=== PATIENT | female | born 1975 | race Caucasian/White ===

== ENCOUNTER 2017-05-31 07:51 | Emergency (ER) | payer OTHER ==
[2017-05-31 09:03] LABS: ABSOLUTE LYMPHOCYTES (AUTO) 1.4 10^3/uL (0.5-4.7); ABSOLUTE MONOCYTES (AUTO) 0.4 10^3/uL (0.1-1.4); ABSOLUTE NEUT (AUTO) 4.1 10^3/uL (1.7-8.2); BASOPHILS % (AUTO) 0.5 % (0-2); EOSINOPHILS % (AUTO) 0.8 % (0-6); HEMATOCRIT 34.1 % (36.0-47.0); HEMOGLOBIN 11.1 g/dL (12.0-15.5); HGB HCT DIFFERENCE -0.8; LYMPHOCYTES % (AUTO) 23.5 % (13-45); MEAN CORPUSCULAR HEMOGLOBIN 31.9 pg (27.0-33.4); MEAN CORPUSCULAR HGB CONC 32.5 g/dL (32.0-36.0); MEAN CORPUSCULAR VOLUME 98 fl (80-97); MONOCYTES % (AUTO) 5.9 % (3-13); RED BLOOD COUNT 3.47 10^6/uL (3.72-5.28); RED CELL DISTRIBUTION WIDTH 16.1 % (11.5-14.0); SEGMENTED NEUTROPHILS % (AUTO) 69.3 % (42-78)
[2017-05-31 09:16] LABS: PROTHROMBIN TIME 12.8 SEC (11.4-15.4)
[2017-05-31 09:17] LABS: PARTIAL THROMBOPLASTIN TIME 26.6 SEC (23.5-35.8)
[2017-05-31 09:20] LABS: ANION GAP 8 (5-19); BLOOD UREA NITROGEN 11 mg/dL (7-20); CALCIUM 8.9 mg/dL (8.4-10.2); CARBON DIOXIDE 23 mmol/L (22-30); CHLORIDE 108 mmol/L (98-107); CREATININE RESULT 0.67 mg/dL (0.52-1.25); GLUCOSE 102 mg/dL (75-110); POTASSIUM 4.3 mmol/L (3.6-5.0); SODIUM 138.9 mmol/L (137-145)
--- NOTE | 2017-05-31 09:46 | RADIOLOGY REPORT (SQ) ---
EXAM DESCRIPTION: HAND RIGHT 3 VIEWS COMPLETED DATE/TIME: 05/31/2017 8:49 am REASON FOR STUDY: 5th dig pain COMPARISON: None. EXAM PARAMETERS: NUMBER OF VIEWS: Three views. TECHNIQUE: AP, lateral and oblique radiographic images acquired of the right hand. LIMITATIONS: None. FINDINGS: MINERALIZATION: Normal. BONES: No acute fracture or dislocation. No worrisome bone lesions. Small benign-appearing bony exo stosis off the anterior shaft of the 5th metacarpal. JOINTS: No effusions. SOFT TISSUES: No soft tissue swelling. No foreign body. OTHER: No other significant finding. IMPRESSION: Small benign-appearing bony exostosis off the anterior aspect of the 5th metacarpal othe rwise negative exam. TECHNICAL DOCUMENTATION: JOB ID: [id number] [employer]- All Rights Reserved
--- NOTE | 2017-05-31 12:16 | RADIOLOGY REPORT (SQ) ---
EXAM DESCRIPTION: U/S NON OB PEL TV W/DOPPLER COMPLETED DATE/TIME: 05/31/2017 11:15 am REASON FOR STUDY: lower abd pain bleeding COMPARISON: None. TECHNIQUE: Dynamic and static grayscale images acquired of the pelvis via transvaginal approach and recorded on PACS. Additional selected color Doppler and spectral images recorded. LIMITATIONS: None. FINDINGS: UTERUS: Contour normal. No mass. There is a heterogeneous echo-pattern throughout the ut erus. ENDOMETRIAL STRIPE: There is some loss of definition of the endometrial stripe and adjacent myometriu m. The possibility of adenomyosis should be considered. CERVIX: No nabothian cysts. RIGHT OVARY: No abnormal masses. RIGHT OVARY DOPPLER: Normal arterial vascular flow without evidence for torsion. LEFT OVARY: No abnormal masses. LEFT OVARY DOPPLER: Normal arterial vascular flow without evidence for torsion. FREE FLUID: None noted. OTHER: No other significant finding. MEASUREMENTS: UTERUS: 9.3 x 5.3 x 5.4 cm ENDOMETRIAL STRIPE: 11.2 mm RIGHT OVARY: 3.4 x 2.5 x 2.5 cm LEFT OVARY: 2.6 x 2.0 x 1.7 cm IMPRESSION: There is heterogeneous echogenicity throughout the uterus with some loss of definition o f the endometrial stripe and adjacent myometrium. The possibility of adenomyosis should be considere d. No discrete masses are identified. Other findings as noted above TECHNICAL DOCUMENTATION: JOB ID: [id number] [employer]- All Rights Reserved
--- NOTE | 2017-05-31 12:38 | ER Document Report ---
ED General - General Chief Complaint: Vaginal Bleeding Stated Complaint: VAGINAL BLEEDING Time Seen by Provider: 05/31/17 08:22 TRAVEL OUTSIDE OF THE U.S. IN LAST 30 DAYS: No - HPI Patient complains to provider of: Vaginal bleeding Notes: Patient coming in for evaluation of vaginal bleeding. Patient states that her normal menstrual cycle however now has been bleeding heavily since night prior to last. Patient states also lower abdominal cramping. Denies any vaginal discharge patient denies any fever chills nausea vomiting. - Related Data Allergies/Adverse Reactions: acetaminophen [From Vicodin] Allergy (Verified 05/31/17 07:57) hydrocodone [From Vicodin] Allergy (Verified 05/31/17 07:57) Past Medical History - Social History Smoking Status: Current Some Day Smoker Chew tobacco use (# tins/day): No Frequency of alcohol use: Heavy Drug Abuse: None Family History: Reviewed & Not Pertinent, Arthritis, DM, Malignancy Patient has suicidal ideation: No Patient has homicidal ideation: No - Past Medical History Cardiac Medical History: Reports: Hx Hypercholesterolemia, Hx Hypertension Pulmonary Medical History: Reports: Hx Pneumonia Neurological Medical History: Reports: Hx Migraine Renal/ Medical History: Reports: Hx Ectopic , Hx Kidney Stones. Denies: Hx Peritoneal Dialysis Musculoskeltal Medical History: Reports Hx Arthritis, Reports Hx Musculoskeletal Deformity, Reports Hx Musculoskeletal Trauma Psychiatric Medical History: Reports: Hx Anxiety, Hx Attention Deficit Hyperactivity Disorder, Hx Bipolar Disorder, Hx Depression Past Surgical History: Reports: Hx Appendectomy, Hx Genitourinary Surgery - right ureteral stent - Immunizations Immunizations up to date: No Hx Diphtheria, Pertussis, Tetanus Vaccination: No - unk Review of Systems - Review of Systems Constitutional: No symptoms reported EENT: No symptoms reported Cardiovascular: No symptoms reported Respiratory: No symptoms reported Gastrointestinal: No symptoms reported Genitourinary: No symptoms reported Female Genitourinary: Vaginal bleeding Musculoskeletal: No symptoms reported Skin: No symptoms reported Hematologic/Lymphatic: No symptoms reported Neurological/Psychological: No symptoms reported -: Yes All other systems reviewed and negative Physical Exam - Vital signs Vitals: Temp Pulse Resp BP Pulse Ox 97.9 F 87 16 158/102 H 98 05/31/17 07:57 05/31/17 07:57 05/31/17 07:57 05/31/17 07:57 05/31/17 07:57 Interpretation: Normal - General General appearance: Appears well, Alert - HEENT Head: Normocephalic, Atraumatic Eyes: Normal Pupils: PERRL - Respiratory Respiratory status: No respiratory distress Chest status: Nontender Breath sounds: Normal Chest palpation: Normal - Cardiovascular Rhythm: Regular Heart sounds: Normal auscultation Murmur: No - Abdominal Inspection: Normal Distension: No distension Bowel sounds: Normal Tenderness: Nontender Organomegaly: No organomegaly - Back Back: Normal, Nontender - Extremities General upper extremity: Normal inspection, Nontender, Normal color, Normal ROM , Normal temperature General lower extremity: Normal inspection, Nontender, Normal color, Normal ROM , Normal temperature, Normal weight bearing. No: Eze's sign - Neurological Neuro grossly intact: Yes Cognition: Normal Orientation: AAOx4 [place] Coma Scale Eye Opening: Spontaneous [place] Coma Scale Verbal: Oriented Beata Coma Scale Motor: Obeys Commands Beata Coma Scale Total: 15 Speech: Normal Motor strength normal: LUE, RUE, LLE, RLE Sensory: Normal - Psychological Associated symptoms: Normal affect, Normal mood - Skin Skin Temperature: Warm Skin Moisture: Dry Skin Color: Normal Course - Re-evaluation Re-evalutation: 05/31/17 15:12 Patient ultrasound shows possible adenomyosis this pathology was explained to the patient patient also explained she will need to follow-up with [facility]. Copy to the patient results were given to the patient. Patient has no weakness ongoing mild anemia. Patient was encouraged take iron tablets. Patient will be discharged home. - Vital Signs Vital signs: Temp Pulse Resp BP Pulse Ox 97.9 F 80 18 145/96 H 99 05/31/17 13:24 05/31/17 13:24 05/31/17 13:24 05/31/17 13:24 05/31/17 13:24 - Laboratory Result Diagrams: 05/31/17 08:50 05/31/17 08:50 Laboratory results interpreted by me: 05/31/17 05/31/17 08:50 08:50 RBC 3.47 L Hgb 11.1 L Hct 34.1 L MCV 98 H RDW 16.1 H Chloride 108 H Discharge - Discharge Clinical Impression: Vaginal bleeding Condition: Good Disposition: HOME, SELF-CARE Instructions: Vaginal Bleeding ([facility]) Additional Instructions: Ultrasound today shows a condition called adenomyosis which can cause very heavy bleeding during menstrual cycles. Your lab work does not show any signs of significant anemia requiring blood transfusion at this time. However recommend she call and discuss this new finding with your [facility] I would recommend taking [id number] vitamin or iron tablets take pain medication Tylenol Motrin as needed take prescribed medication for severe pain. Prescriptions: Iron,Carbonyl/Ascorbic Acid [Iron 100-Vitamin C Tablet] 1 each PO DAILY #30 tablet Tramadol HCl [Ultram 50 mg Tablet] 50 mg PO ASDIR PRN #14 tablet PRN Reason: Forms: Return to Work
[2017-05-31 13:43] VITALS: BP 145/96
== END 2017-05-31 13:30 | disposition home or self-care (01) ==
LOC: ER 07:51
DX: N93.8 Other specified abnormal uterine and vaginal bleeding (principal); F17.200 Nicotine dependence, unspecified, uncomplicated; E78.00 Pure hypercholesterolemia, unspecified; I10 Essential (primary) hypertension; Z88.6 Allergy status to analgesic agent; Z87.442 Personal history of urinary calculi
CPT/HCPCS: 36415; 76830; 80048; 84702; 85025; 85610; 85730; 93976; 99284

== ENCOUNTER 2017-09-15 12:37 | Emergency (ER) | payer OTHER ==
--- NOTE | 2017-09-15 13:07 | ER Document Report ---
HPI - HPI Patient complains to provider of: right forearm bruise, injury Onset: Yesterday - Last night Quality of pain: Throbbing Pain Level: 5 Context: 42-year-old female daily etoh consumption fell last night outside in the dark when intoxicated injuring right dorsal forearm, not sure what she injured it on. Hurt all night. Associated Symptoms: None Exacerbated by: Denies Relieved by: Denies Similar symptoms previously: No Recently seen / treated by doctor: No - ROS ROS below otherwise negative: Yes Systems Reviewed and Negative: Yes All other systems reviewed and negative - REPRODUCTIVE Reproductive: DENIES: : - DERM Skin Color: Flushed Past Medical History - General Information source: Patient - Social History Smoking Status: Current Every Day Smoker Frequency of alcohol use: None Drug Abuse: None Lives with: Spouse/Significant other Family History: Reviewed & Not Pertinent, Arthritis, DM, Malignancy Patient has suicidal ideation: No Patient has homicidal ideation: No - Past Medical History Cardiac Medical History: Reports: Hx Hypercholesterolemia, Hx Hypertension Pulmonary Medical History: Reports: Hx Pneumonia Neurological Medical History: Reports: Hx Migraine Renal/ Medical History: Reports: Hx Ectopic , Hx Kidney Stones. Denies: Hx Peritoneal Dialysis Musculoskeltal Medical History: Reports Hx Arthritis, Reports Hx Musculoskeletal Deformity, Reports Hx Musculoskeletal Trauma Psychiatric Medical History: Reports: Hx Anxiety, Hx Attention Deficit Hyperactivity Disorder, Hx Bipolar Disorder, Hx Depression Past Surgical History: Reports: Hx Appendectomy, Hx Genitourinary Surgery - right ureteral stent - Immunizations Immunizations up to date: No Hx Diphtheria, Pertussis, Tetanus Vaccination: No - unk Vertical Provider Document - CONSTITUTIONAL Agree With Documented VS: Yes Exam Limitations: No Limitations General Appearance: Mild Distress - crying in pain - INFECTION CONTROL TRAVEL OUTSIDE OF THE [place].S. IN LAST 30 DAYS: No - HEENT HEENT: Normocephalic - NECK Neck: Supple - RESPIRATORY Respiratory: Breath Sounds Normal, No Respiratory Distress O2 Sat by Pulse Oximetry: 100 - CARDIOVASCULAR Cardiovascular: Regular Rate, Regular Rhythm - GI/ABDOMEN Gastrointestinal: Abdomen Soft, Abdomen Non-Tender - MUSCULOSKELETAL/EXTREMETIES Musculoskeletal/Extremeties: Tender - selling and ecchymosis right mid to distal dorsal forarm Non tender snuffbox and hand - NEURO Level of Consciousness: Awake, Alert, Appropriate Motor/Sensory: No Motor Deficit, No Sensory Deficit - DERM Integumentary: Warm, Dry Course - Re-evaluation Re-evalutation: 09/15/17 14:07 X-ray is negative, I spoke with the patient about using an Buster wrap and sling, she needs a note since she works at [employer], she does not want help with daily alcohol use today but I did give her the resources available to her in this area. 09/15/17 14:18 Mohamud her [id number] and Camacho both guarantee that she will not drink alcohol when she is taking pain pills I will give her a few oxycodone for home. - Vital Signs Vital signs: Temp Pulse Resp BP Pulse Ox 97.6 F 89 20 148/107 H 100 09/15/17 12:51 09/15/17 12:51 09/15/17 12:51 09/15/17 12:51 09/15/17 12:51 Procedures - Immobilization Right Arm Time completed: 14:08 Pre-Proc Neuro Vasc Exam: Normal Immobilizer type: Buster wrap, Sling Performed by: PCT Post-Proc Neuro Vasc Exam: Normal Alignment checked and good: Yes Discharge - Discharge Clinical Impression: Alcoholism /alcohol abuse Fall Qualifiers: Encounter type: initial encounter Qualified Code(s): W19.XXXA - Unspecified fall, initial encounter Contusion of right forearm Qualifiers: Encounter type: initial encounter Qualified Code(s): S50.11XA - Contusion of right forearm, initial encounter Condition: Good Disposition: HOME, SELF-CARE Instructions: Buster Wrap ([facility]), Chronic Alcoholism ([facility]), Contusion ([facility]), Family Physicians / Practices, Temporary Sling ([facility]) Additional Instructions: buster wrap for comfort sling for comfort seek alcohol help, resources given to you cool compress or heat whichever feels better to er if worse see orthopedics if persists expect bruising to get darker Please complete the patient satisfaction survey if you get one, and return it.. If you do not receive a survey, then you can go to the [facility] website, [email or web address] and place your comments about your very good care. Thank you very much. It was a pleasure being your medical provider today. Prescriptions: Oxycodone HCl [Oxy-Ir 5 mg Tablet] 5 mg PO Q4HP PRN #10 tab PRN Reason: Ibuprofen [Motrin 800 mg Tablet] 800 mg PO Q8HP PRN #30 tablet PRN Reason: Forms: Return to Work Referrals: REYNALDO DURHAM MD [ACTIVE STAFF] - Follow up as needed
[2017-09-15] MEDS ORDERED: OXYCODONE-ACETAMINOPHEN 5-325 MG TABLET PO ONE (13:09)
[2017-09-15] MEDS ORDERED: IBUPROFEN 800 MG TABLET PO ONE (13:10)
[2017-09-15] MEDS ORDERED: ONDANSETRON 4 MG TAB.RAPDIS PO ONE (13:10)
--- NOTE | 2017-09-15 13:51 | RADIOLOGY REPORT (SQ) ---
EXAM DESCRIPTION: FOREARM RIGHT COMPLETED DATE/TIME: 09/15/2017 1:30 pm REASON FOR STUDY: fall injury COMPARISON: None. NUMBER OF VIEWS: Two views. TECHNIQUE: Two radiographic images acquired of the right forearm, including elbow and wrist in at le ast one projection. LIMITATIONS: None. FINDINGS: MINERALIZATION: Normal. BONES: No acute fracture. No worrisome bone lesions. SOFT TISSUES: No obvious swelling or foreign body. OTHER: No other significant finding. IMPRESSION: NEGATIVE STUDY OF THE RIGHT FOREARM. NO RADIOGRAPHIC EVIDENCE OF ACUTE INJURY. TECHNICAL DOCUMENTATION: JOB ID: [id number] [employer]- All Rights Reserved
[2017-09-15 14:54] VITALS: BP 152/97
== END 2017-09-15 14:55 | disposition home or self-care (01) ==
LOC: ER 12:37
DX: S50.11XA Contusion of right forearm, initial encounter (principal); F10.10 Alcohol abuse, uncomplicated; W18.30XA Fall on same level, unspecified, initial encounter; F17.210 Nicotine dependence, cigarettes, uncomplicated; E78.00 Pure hypercholesterolemia, unspecified; I10 Essential (primary) hypertension; Z87.442 Personal history of urinary calculi
CPT/HCPCS: 99283; 73090; S0119

== ENCOUNTER 2018-01-10 16:22 | Emergency (ER) | payer OTHER ==
[2018-01-10] MEDS ORDERED: NORMAL SALINE 1000 ML 1,000 ML IV ONE (16:43)
[2018-01-10] MEDS ORDERED: MORPHINE SULFATE 10 MG/ML INJ IV ONE (16:43)
[2018-01-10] MEDS ORDERED: ONDANSETRON HCL INJ/PF 4 MG/2 ML SDV IV ONE (16:43)
--- NOTE | 2018-01-10 16:45 | ER Document Report ---
ED Medical Screen (RME) - General Chief Complaint: Flu Symptoms Stated Complaint: FLU SYMPTOMS Time Seen by Provider: 01/10/18 16:42 Notes: pt has fever, chills, vomiting, hx of pyelo TRAVEL OUTSIDE OF THE [place]. IN LAST 30 DAYS: No - Related Data Allergies/Adverse Reactions: acetaminophen [From Vicodin] Allergy (Verified 01/10/18 16:23) hydrocodone [From Vicodin] Allergy (Verified 01/10/18 16:23) Past Medical History - Social History Frequency of alcohol use: Heavy Drug Abuse: None - Past Medical History Cardiac Medical History: Reports: Hx Hypercholesterolemia, Hx Hypertension Pulmonary Medical History: Reports: Hx Pneumonia Neurological Medical History: Reports: Hx Migraine Renal/ Medical History: Reports: Hx Ectopic , Hx Kidney Stones. Denies: Hx Peritoneal Dialysis Musculoskeltal Medical History: Reports Hx Arthritis, Reports Hx Musculoskeletal Deformity, Reports Hx Musculoskeletal Trauma Psychiatric Medical History: Reports: Hx Anxiety, Hx Attention Deficit Hyperactivity Disorder, Hx Bipolar Disorder, Hx Depression Past Surgical History: Reports: Hx Appendectomy, Hx Genitourinary Surgery - right ureteral stent - Immunizations Immunizations up to date: No Hx Diphtheria, Pertussis, Tetanus Vaccination: No - unk Physical Exam - Vital signs Vitals: Temp Pulse Resp BP Pulse Ox 98.1 F 101 H 18 142/95 H 100 01/10/18 16:28 01/10/18 16:28 01/10/18 16:28 01/10/18 16:28 01/10/18 16:28 Course - Vital Signs Vital signs: Temp Pulse Resp BP Pulse Ox 98.4 F 101 H 18 142/95 H 100 01/10/18 16:43 01/10/18 16:28 01/10/18 16:28 01/10/18 16:28 01/10/18 16:28
[2018-01-10] MEDS ORDERED: HYDROMORPHONE HCL INJ/PF 2 MG/ML AMPULE IV ONE ×2 (16:51→18:10)
[2018-01-10 17:09] LABS: ABSOLUTE LYMPHOCYTES (AUTO) 0.7 10^3/uL (0.5-4.7); ABSOLUTE MONOCYTES (AUTO) 0.4 10^3/uL (0.1-1.4); BASOPHILS % (AUTO) 0.3 % (0-2); EOSINOPHILS % (AUTO) 0.1 % (0-6); HEMATOCRIT 36.2 % (36.0-47.0); HEMOGLOBIN 12.1 g/dL (12.0-15.5); LYMPHOCYTES % (AUTO) 7.8 % (13-45); MEAN CORPUSCULAR HEMOGLOBIN 32.3 pg (27.0-33.4); MEAN CORPUSCULAR HGB CONC 33.5 g/dL (32.0-36.0); MEAN CORPUSCULAR VOLUME 96 fl (80-97); MONOCYTES % (AUTO) 4.6 % (3-13); PLATELET COUNT 195 10^3/uL (150-450); RED BLOOD COUNT 3.76 10^6/uL (3.72-5.28); SEGMENTED NEUTROPHILS % (AUTO) 87.2 % (42-78); TOTAL CELLS COUNTED % (AUTO) 100 %; WHITE BLOOD COUNT 9.1 10^3/uL (4.0-10.5)
[2018-01-10 17:35] LABS: ALANINE AMINOTRANSFERASE 23 U/L (9-52); ALBUMIN 4.3 g/dL (3.5-5.0); ALKALINE PHOSPHATASE 44 U/L (38-126); ANION GAP 10 (5-19); ASPARTATE AMINO TRANSFERASE 23 U/L (14-36); BILIRUBIN,DIRECT 0.4 mg/dL (0.0-0.4); BILIRUBIN,TOTAL 0.8 mg/dL (0.2-1.3); BLOOD UREA NITROGEN 8 mg/dL (7-20); CALCIUM 10.2 mg/dL (8.4-10.2); CARBON DIOXIDE 24 mmol/L (22-30); CHLORIDE 103 mmol/L (98-107); GLUCOSE 103 mg/dL (75-110); SODIUM 136.8 mmol/L (137-145); TOTAL PROTEIN 6.9 g/dL (6.3-8.2)
[2018-01-10 17:48] LABS: AMORPHOUS SEDIMENT,URINE TRACE /HPF; APPEARANCE,URINE SLIGHTLY-CLOUDY; BILIRUBIN,URINE NEGATIVE (NEGATIVE); COLOR,URINE YELLOW; GLUCOSE, URINE NEGATIVE (NEGATIVE); KETONES,URINE NEGATIVE (NEGATIVE); LEUKOCYTE ESTERASE,URINE LARGE (NEGATIVE); NITRITE,URINE NEGATIVE (NEGATIVE); PROTEIN,URINE NEGATIVE (NEGATIVE); UROBILINOGEN,URINE NEGATIVE mg/dL (<2.0)
[2018-01-10] MEDS ORDERED: METOCLOPRAMIDE HCL INJ/PF 10 MG/2 ML SDV IV ONE (18:10)
[2018-01-10] MEDS ORDERED: DIPHENHYDRAMINE HCL 50 MG/ML VIAL IV ONE (18:10)
[2018-01-10] MEDS ORDERED: CEFTRIAXONE 2 GM/D5W RTU 2 GM/50 ML RTUPB IV ONE (18:11)
[2018-01-10] MEDS ORDERED: RINGERS SOLUTION,LACTATED 1,000 ML IV ONE (18:11)
--- NOTE | 2018-01-10 18:13 | ER Document Report ---
ED General - General Chief Complaint: Flu Symptoms Stated Complaint: FLU SYMPTOMS Time Seen by Provider: 01/10/18 16:42 Mode of Arrival: Ambulatory Information source: Patient Notes: This is a 42-year-old female with a history of kidney stones, pyelonephritis, hypertension, dyslipidemia. The patient presents to the emergency room with shaking chills, right flank pain, right lower quadrant pain. The patient does state she felt like she had a UTI for the past 2 weeks and then acutely became sick last night at 9 PM. She does report nausea, vomiting. TRAVEL OUTSIDE OF THE [place]. IN LAST 30 DAYS: No - HPI Onset: Yesterday Onset/Duration: Gradual Quality of pain: Dull Severity: Moderate Pain Level: 2 Associated symptoms: Chills, Fever, Nausea, Vomiting Exacerbated by: Denies Relieved by: Denies Similar symptoms previously: Yes Recently seen / treated by doctor: Yes - Related Data Allergies/Adverse Reactions: acetaminophen [From Vicodin] Allergy (Verified 01/10/18 16:23) hydrocodone [From Vicodin] Allergy (Verified 01/10/18 16:23) Past Medical History - General Information source: Patient - Social History Smoking Status: Current Every Day Smoker Cigarette use (# per day): Yes - Half pack per day Chew tobacco use (# tins/day): No Frequency of alcohol use: Heavy Drug Abuse: None Lives with: Family Family History: Reviewed & Not Pertinent, Arthritis, DM, Malignancy Patient has suicidal ideation: No Patient has homicidal ideation: No - Past Medical History Cardiac Medical History: Reports: Hx Hypercholesterolemia, Hx Hypertension Pulmonary Medical History: Reports: Hx Pneumonia Neurological Medical History: Reports: Hx Migraine Renal/ Medical History: Reports: Hx Ectopic , Hx Kidney Stones. Denies: Hx Peritoneal Dialysis Musculoskeltal Medical History: Reports Hx Arthritis, Reports Hx Musculoskeletal Deformity, Reports Hx Musculoskeletal Trauma Psychiatric Medical History: Reports: Hx Anxiety, Hx Attention Deficit Hyperactivity Disorder, Hx Bipolar Disorder, Hx Depression Past Surgical History: Reports: Hx Appendectomy, Hx Genitourinary Surgery - right ureteral stent - Immunizations Immunizations up to date: No Hx Diphtheria, Pertussis, Tetanus Vaccination: No - unk Review of Systems - Review of Systems Notes: Review of systems: Constitutional: Denies fever, chills. EENT: Denies ear pain, sinus tenderness, throat pain, throat swelling. Cardiovascular: Denies chest pain, palpitations, dyspnea or edema. Respiratory: Denies wheezing, cough, hemoptysis. Abdomen: Denies abdominal pain, nausea, vomiting, diarrhea. Denies BRBPR or melena. Genitourinary: See H&P Musculoskeletal: denies joint pain or swelling, denies back pain. Neurologic: Denies headache, photophobia, neck stiffness, weakness. Denies loss of bowel or bladder function. Denies saddle anesthesia. Skin: Denies rash, lesions. Physical Exam - Vital signs Vitals: Temp Pulse Resp BP Pulse Ox 98.1 F 101 H 18 142/95 H 100 01/10/18 16:28 01/10/18 16:28 01/10/18 16:28 01/10/18 16:28 01/10/18 16:28 Notes: Physical exam: GENERAL: 42-year-old female, alert and oriented 3, no acute distress HEAD: Atraumatic, normocephalic. EYES: Pupils equal round and reactive to light, extraocular movements intact, sclera anicteric, conjunctiva are normal. ENT: TMs normal, nares patent, oropharynx clear without exudates. Moist mucous membranes. NECK: Normal range of motion, supple without obvious mass or JVD. LUNGS: Breath sounds clear to auscultation bilaterally and equal. No wheezes rales or rhonchi. HEART: Regular rate and rhythm without murmurs, rubs or gallops. ABDOMEN: Soft, normoactive bowel sounds. Mild right lower quadrant tenderness without guarding or rebound. No masses appreciated. Right CVA tenderness EXTREMITIES: Normal range of motion, no pitting or edema. No clubbing or cyanosis. NEUROLOGICAL: Cranial nerves II through XII grossly intact. Normal speech, moving all extremities. PSYCH: Normal mood, normal affect. SKIN: Warm, Dry, normal turgor, no rashes or lesions noted. Course - Re-evaluation Re-evalutation: 01/10/18 20:56 Note: The patient did spike a temperature and has some tachycardia which is consistent with her temperature. However, she still looks good. She is requesting p.o. intake right now. She has gotten IV ceftriaxone and oral levofloxacin and I will send her home on Cipro for pyelonephritis. I have advised her to return tomorrow if she is not able to tolerate fluids or feels like she is getting worse. - Vital Signs Vital signs: Temp Pulse Resp BP Pulse Ox 102.4 F H 101 H 18 142/95 H 100 01/10/18 20:45 01/10/18 16:28 01/10/18 16:28 01/10/18 16:28 01/10/18 16:28 - Laboratory Result Diagrams: 01/10/18 16:52 01/10/18 16:52 Laboratory results interpreted by me: 01/10/18 01/10/18 01/10/18 16:52 16:52 16:52 RDW 15.0 H Seg Neutrophils % 87.2 H Lymphocytes % 7.8 L Sodium 136.8 L Urine Blood MODERATE H Ur Leukocyte Esterase LARGE H - Diagnostic Test Radiology reviewed: Image reviewed, Reports reviewed - CT of the abdomen shows no acute intra-abdominal pathology Discharge - Discharge Clinical Impression: Pyelonephritis Condition: Stable Disposition: HOME, SELF-CARE Instructions: Pyelonephritis ([facility]) Additional Instructions: The urine test does show that you have got a kidney infection. The CT of the abdomen look good. Rest of your labs look good today. You did get IV antibiotics and oral antibiotics in the emergency room. I want you to rest, drink fluids and advance her diet slowly as tolerated. Take Cipro (antibiotic): Start tomorrow morning, you given tonight's dose in the ER. Take oxycodone for pain. Take Zofran for nausea. Return to the emergency room for any worsening pain, not tolerating fluids or any concerns or getting worse. The pain medicine you're taking prescribed as a narcotic. There are several important things you should know about this medicine: 1. Taking narcotics for too long can lead to physical and mental dependence. Take this medicine only if really needed and in the lowest quantity to achieve pain relief. 2. Do not drink alcohol while on this medicine. Alcohol interacts with narcotics and the combination can be dangerous. 3. Do not drive or operate machinery while on this medicine. 4. Narcotics do cause constipation, so drink plenty of fluids and daily stool softeners. Prescriptions: Oxycodone HCl 5 mg PO Q6HP PRN #25 tablet PRN Reason: Ciprofloxacin HCl [Cipro 500 mg Tablet] 500 mg PO BID #20 tablet Fluconazole [Diflucan] 150 mg PO ONCE PRN #1 tablet PRN Reason: Ondansetron HCl [Zofran 4 mg Tablet] 1 - 2 tab PO Q4H PRN #10 tablet PRN Reason: Referrals: PETE MONTEZ FNP [Primary Care Provider] - Follow up in 3-5 days
--- NOTE | 2018-01-10 20:40 | RADIOLOGY REPORT (SQ) ---
EXAM DESCRIPTION: CT LTD RENAL STONE PROTOCOL ON COMPLETED DATE/TIME: 01/10/2018 8:24 pm REASON FOR STUDY: right flank pain COMPARISON: 03/22/2014 TECHNIQUE: CT scan of the abdomen and pelvis performed without intravenous or oral contrast. Images reviewed with lung, soft tissue, and bone windows. Reconstructed coronal and sagittal MPR images revi ewed. All images stored on PACS. All CT scanners at this facility use dose modulation, iterative reconstruction, and/or weight based d osing when appropriate to reduce radiation dose to as low as reasonably achievable (ALARA). [facility]: Dose Right [facility]: CareDose [facility]: Dose Right [facility]: Teradose 4D [facility]: Smart GenAudio RADIATION DOSE: CT Rad equipment meets quality standard of care and radiation dose reduction techniq ues were employed. CTDIvol: 8.9 mGy. DLP: 472 mGy-cm.mGy. LIMITATIONS: None. FINDINGS: LOWER CHEST: No significant findings. No nodules or infiltrates. NON-CONTRASTED LIVER, SPLEEN, ADRENALS: Evaluation limited by lack of IV contrast. No identified sign ificant masses. PANCREAS: No masses. No peripancreatic inflammatory changes. GALLBLADDER: No identified stones by CT criteria. No inflammatory changes to suggest cholecystitis. RIGHT KIDNEY AND URETER: No suspicious masses. Assessment limited by lack of IV contrast. Similar mi ldly atrophic appearance. Similar tiny parenchymal calcifications. No hydronephrosis or hydrourete r. LEFT KIDNEY AND URETER: No suspicious masses. Assessment limited by lack of IV contrast. Similar ti ny parenchymal calcifications. No hydronephrosis or hydroureter. AORTA AND RETROPERITONEUM: No aneurysm. No retroperitoneal masses or adenopathy. BOWEL AND PERITONEAL CAVITY: No obvious masses or inflammatory changes. No free fluid. APPENDIX: Surgically absent. PELVIS, BLADDER, AND ABDOMINAL WALL:No abnormal masses. No free fluid. Bladder normal. BONES: No acute findings. OTHER: No other significant finding. IMPRESSION: NO ACUTE PROCESS IN THE ABDOMEN OR PELVIS. COMMENT: Quality ID # [id number]: Final reports with documentation of one or more dose reduction techniques (e.g., Automated exposure control, adjustment of the mA and/or kV according to patient size, use of iterative reconstruction technique) TECHNICAL DOCUMENTATION: JOB ID: [id number] [id number] 2010 [employer]- All Rights Reserved
[2018-01-10] MEDS ORDERED: LEVOFLOXACIN 500 MG TABLET PO ONE (20:53)
[2018-01-10] MEDS ORDERED: ACETAMINOPHEN 325 MG TABLET PO ONE (20:54)
[2018-01-10] MEDS ORDERED: OXYCODONE HCL IR 5 MG TABLET PO ONE (20:56)
[2018-01-10] MEDS ORDERED: ONDANSETRON ODT 4 MG TAB (6 TAB/ER DISP) PO PRN (21:00)
[2018-01-10 21:41] VITALS: BP 131/79
== END 2018-01-10 21:41 | disposition home or self-care (01) ==
LOC: ER 16:22
DX: N12 Tubulo-interstitial nephritis, not specified as acute or chronic (principal); R11.2 Nausea with vomiting, unspecified; R10.31 Right lower quadrant pain; F17.210 Nicotine dependence, cigarettes, uncomplicated; Z87.442 Personal history of urinary calculi; Z88.6 Allergy status to analgesic agent
CPT/HCPCS: 96376; 99284; 96361; 96375; 96365; 36415; 87086; 85025; 81025; 87088; 80053; 81001; 87186; 76380; J1200; J2765; J1170; J2405; J7030; J7120; J0696

== ENCOUNTER 2018-02-21 10:11 | Emergency (ER) | payer OTHER ==
[2018-02-21] MEDS ORDERED: NORMAL SALINE 1000 ML 1,000 ML IV ONE (10:32)
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
[2018-02-21] MEDS ORDERED: MORPHINE SULFATE 10 MG/ML INJ IV ONE ×2 (10:36→15:11)
[2018-02-21] MEDS ORDERED: CEFTRIAXONE INJ 1000 MG VIAL IV ONE (10:43)
[2018-02-21 11:11] LABS: ABSOLUTE MONOCYTES (AUTO) 0.4 10^3/uL (0.1-1.4); ABSOLUTE NEUT (AUTO) 5.1 10^3/uL (1.7-8.2); BASOPHILS % (AUTO) 0.4 % (0-2); EOSINOPHILS % (AUTO) 0.7 % (0-6); HEMATOCRIT 36.8 % (36.0-47.0); HEMOGLOBIN 12.1 g/dL (12.0-15.5); LYMPHOCYTES % (AUTO) 15.4 % (13-45); MEAN CORPUSCULAR HGB CONC 32.8 g/dL (32.0-36.0); MEAN CORPUSCULAR VOLUME 98 fl (80-97); MONOCYTES % (AUTO) 5.4 % (3-13); PLATELET COUNT 202 10^3/uL (150-450); RED BLOOD COUNT 3.76 10^6/uL (3.72-5.28); RED CELL DISTRIBUTION WIDTH 15.6 % (11.5-14.0); SEGMENTED NEUTROPHILS % (AUTO) 78.1 % (42-78); TOTAL CELLS COUNTED % (AUTO) 100 %; WHITE BLOOD COUNT 6.5 10^3/uL (4.0-10.5)
[2018-02-21 11:31] LABS: ALANINE AMINOTRANSFERASE 28 U/L (9-52); ALBUMIN 4.3 g/dL (3.5-5.0); ALKALINE PHOSPHATASE 39 U/L (38-126); ANION GAP 10 (5-19); ASPARTATE AMINO TRANSFERASE 22 U/L (14-36); BILIRUBIN,DIRECT 0.3 mg/dL (0.0-0.4); BILIRUBIN,TOTAL 0.5 mg/dL (0.2-1.3); BLOOD UREA NITROGEN 10 mg/dL (7-20); CALCIUM 9.5 mg/dL (8.4-10.2); CARBON DIOXIDE 24 mmol/L (22-30); CHLORIDE 108 mmol/L (98-107); GLUCOSE 98 mg/dL (75-110); POTASSIUM 4.4 mmol/L (3.6-5.0); SODIUM 141.7 mmol/L (137-145); TOTAL PROTEIN 7.1 g/dL (6.3-8.2)
[2018-02-21 12:01] LABS: APPEARANCE,URINE CLEAR; BILIRUBIN,URINE NEGATIVE (NEGATIVE); COLOR,URINE STRAW; GLUCOSE, URINE NEGATIVE (NEGATIVE); KETONES,URINE NEGATIVE (NEGATIVE); LEUKOCYTE ESTERASE,URINE NEGATIVE (NEGATIVE); NITRITE,URINE NEGATIVE (NEGATIVE); PROTEIN,URINE NEGATIVE (NEGATIVE); URINE SPECIFIC GRAVITY 1.012; UROBILINOGEN,URINE NEGATIVE mg/dL (<2.0)
--- NOTE | 2018-02-21 12:25 | RADIOLOGY REPORT (SQ) ---
EXAM DESCRIPTION: U/S NON OB PEL W/DOPPLER COMPLETED DATE/TIME: 02/21/2018 12:14 pm REASON FOR STUDY: stat r/o ectopic COMPARISON: None. TECHNIQUE: Transabdominal static and realtime grayscale images acquired of the pelvis. Additional se lected spectral and color Doppler images recorded. All images stored on PACs. BHCG: Not available. LIMITATIONS: None. FINDINGS: UTERUS: No visualized intrauterine . RIGHT ADNEXA: Normal ovary with normal vascular flow. No adnexal free fluid. No adnexal masses. LEFT ADNEXA: Normal ovary with normal vascular flow. No adnexal free fluid. No adnexal masses. FREE FLUID: None. OTHER: No other significant finding. IMPRESSION: NO VISUALIZED INTRA- OR EXTRAUTERINE . bHCG LEVEL NOT AVAILABLE FOR CORRELATION WITH US FINDINGS. ECTOPIC CANNOT BE EXCLUDED. FOLLOW-UP ULTRASOUND AND SERIAL BHCG LEVELS STRONGLY RECOMMENDED TO ACCURATELY ASSESS STATU S. TECHNICAL DOCUMENTATION: JOB ID: [id number] [employer]- All Rights Reserved Reading location - IP/workstation name: [email or web address]
[2018-02-21] MEDS ORDERED: KETOROLAC TROMETHAMINE INJ/PF 30 MG/1 ML SDV IV ONE (12:27)
--- NOTE | 2018-02-21 12:28 | RADIOLOGY REPORT (SQ) ---
EXAM DESCRIPTION: U/S RETROPERITON (RENAL/AORTA) COMPLETED DATE/TIME: 02/21/2018 12:14 pm REASON FOR STUDY: right side abd pain hx stones COMPARISON: None. TECHNIQUE: Dynamic and static grayscale images acquired of the kidneys and bladder and recorded on P ACS. Additional selected color Doppler and spectral images recorded. LIMITATIONS: None. FINDINGS: RIGHT KIDNEY: 12.0 cm. Normal echogenicity. No solid or suspicious masses. No hydronephros is. No calcifications. LEFT KIDNEY: 8.9 cm. Increased echogenicity. No solid or suspicious masses. No hydronephrosis. No c alcifications. BLADDER: No masses. OTHER FINDINGS: No other significant finding. IMPRESSION: No hydronephrosis. TECHNICAL DOCUMENTATION: JOB ID: [id number] [employer]- All Rights Reserved Reading location - IP/workstation name: [email or web address]
--- NOTE | 2018-02-21 15:01 | RADIOLOGY REPORT (SQ) ---
EXAM DESCRIPTION: CT ABD/PELVIS WITH IV ONLY COMPLETED DATE/TIME: 02/21/2018 2:26 pm REASON FOR STUDY: RLQ pain COMPARISON: CT abdomen pelvis 01/10/2018 TECHNIQUE: CT scan of the abdomen and pelvis performed using helical scanning technique with dynamic intravenous contrast injection. No oral contrast. Images reviewed with lung, soft tissue, and bone windows. Reconstructed coronal and sagittal MPR images reviewed. Delayed images for evaluation of the urinary system also acquired. All images stored on PACS. All CT scanners at this facility use dose modulation, iterative reconstruction, and/or weight based d osing when appropriate to reduce radiation dose to as low as reasonably achievable (ALARA). [facility]: Dose Right [facility]: CareDose [facility]: Dose Right [facility]: Teradose 4D [facility]: [employer] CONTRAST TYPE AND DOSE: contrast/concentration: Isovue 370.00 mg/ml; Total Contrast Delivered: 83.0 ml; Total Saline Delivered: 68.0 ml RENAL FUNCTION: Creatinine 0.64 RADIATION DOSE: CT Rad equipment meets quality standard of care and radiation dose reduction techniq ues were employed. CTDIvol: 7.8 - 11.0 mGy. DLP: 1014 mGy-cm.. LIMITATIONS: None. FINDINGS: LOWER CHEST: No significant findings. No nodules or infiltrates. LIVER: Normal size. No masses. No dilated ducts. SPLEEN: Normal size. No focal lesions. PANCREAS: No masses. No significant calcifications. No adjacent inflammation or peripancreatic fluid collections. Pancreatic duct not dilated. GALLBLADDER: No identified stones by CT criteria. No inflammatory changes to suggest cholecystitis. ADRENAL GLANDS: No significant masses or asymmetry. RIGHT KIDNEY AND URETER: Diffuse atrophy with multiple areas of high-grade cortical thinning right ki dney. This could be due to vesicoureteral reflux as a child and chronic infection. No significant calcifications. No hydronephrosis or hydroureter. LEFT KIDNEY AND URETER: No solid masses. No significant calcifications. No hydronephrosis or hydr oureter. AORTA AND VESSELS: No aneurysm. No dissection. Renal arteries, SMA, celiac without stenosis. RETROPERITONEUM: No retroperitoneal adenopathy, hemorrhage or masses. BOWEL AND PERITONEAL CAVITY: No masses or inflammatory changes. No free fluid or peritoneal masses. Moderate to large amount of stool in the ascending and transverse colon. APPENDIX: Surgically absent PELVIS: No mass. No free fluid. Normal bladder. ABDOMINAL WALL: No masses. No hernias. BONES: No significant or acute findings. OTHER: No other significant finding. IMPRESSION: Post appendectomy. No CT findings to explain history of right lower quadrant pain. Chronic cortical atrophy right kidney TECHNICAL DOCUMENTATION: JOB ID: [id number] Quality ID # [id number]: Final reports with documentation of one or more dose reduction techniques (e.g., Au tomated exposure control, adjustment of the mA and/or kV according to patient size, use of iterative reconstruction technique) 2010 [email or web address]- All Rights Reserved Reading location - IP/workstation name: [facility]
[2018-02-21] MEDS ORDERED: ACYCLOVIR 200 MG CAPSULE PO ONE (15:09)
[2018-02-21 17:05] VITALS: BP 140/86
== END 2018-02-21 17:10 | disposition home or self-care (01) ==
LOC: ER 10:11
DX: R10.31 Right lower quadrant pain (principal); F17.200 Nicotine dependence, unspecified, uncomplicated; I10 Essential (primary) hypertension; Z87.59 Personal history of other complications of pregnancy, childbirth and the puerperium
CPT/HCPCS: 99284; 96361; 96375; 96365; 86900; 86901; 36415; 87086; 86850; 84702; 85025; 80053; 81001; 76770; 76856; 93976; 74177; J1885; J2270; J0696; J7030

== ENCOUNTER 2018-04-21 07:52 | Emergency (ER) | payer OTHER ==
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
--- NOTE | 2018-04-21 08:32 | RADIOLOGY REPORT (SQ) ---
EXAM DESCRIPTION: CT HEAD WITHOUT COMPLETED DATE/TIME: 04/21/2018 8:21 am REASON FOR STUDY: headache COMPARISON: 09/01/2014. TECHNIQUE: Axial images acquired through the brain without intravenous contrast. Images reviewed wi th bone, brain and subdural windows. Additional sagittal and coronal reconstructions were generated. Images stored on PACS. All CT scanners at this facility use dose modulation, iterative reconstruction, and/or weight based d osing when appropriate to reduce radiation dose to as low as reasonably achievable (ALARA). [facility]: Dose Right [facility]: CareDose [facility]: Dose Right [facility]: Teradose 4D [facility]: [employer] RADIATION DOSE: CT Rad equipment meets quality standard of care and radiation dose reduction techniq ues were employed. CTDIvol: 53.2 mGy. DLP: 937 mGy-cm. mGy. LIMITATIONS: None. FINDINGS: VENTRICLES: Normal size and contour. CEREBRUM: No masses. No hemorrhage. No midline shift. No evidence for acute infarction. Normal gra y/white matter differentiation. No areas of low density in the white matter. CEREBELLUM: No masses. No hemorrhage. No alteration of density. No evidence for acute infarction. EXTRAAXIAL SPACES: No fluid collections. No masses. ORBITS AND GLOBE: No intra- or extraconal masses. Normal contour of globe without masses. CALVARIUM: No fracture. PARANASAL SINUSES: No fluid or mucosal thickening. SOFT TISSUES: No mass or hematoma. OTHER: No other significant finding. IMPRESSION: NORMAL BRAIN CT WITHOUT CONTRAST. EVIDENCE OF ACUTE STROKE: NO. COMMENT: Quality ID # [id number]: Final reports with documentation of one or more dose reduction techniques (e.g., Automated exposure control, adjustment of the mA and/or kV according to patient size, use of iterative reconstruction technique) TECHNICAL DOCUMENTATION: JOB ID: [id number] [employer]- All Rights Reserved Reading location - IP/workstation name: [email or web address]
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
[2018-04-21] MEDS ORDERED: KETOROLAC TROMETHAMINE 60 MG/2 ML SDV IM ONE (08:56)
[2018-04-21] MEDS ORDERED: MECLIZINE HCL 25 MG TABLET PO ONE (09:11)
[2018-04-21 09:27] VITALS: BP 133/93
== END 2018-04-21 09:27 | disposition home or self-care (01) ==
LOC: ER 07:52
DX: S00.12XA Contusion of left eyelid and periocular area, initial encounter (principal); S50.11XA Contusion of right forearm, initial encounter; Y09 Assault by unspecified means; Y92.488 Other paved roadways as the place of occurrence of the external cause; F07.81 Postconcussional syndrome; Z88.6 Allergy status to analgesic agent; Z88.5 Allergy status to narcotic agent; F17.200 Nicotine dependence, unspecified, uncomplicated; I10 Essential (primary) hypertension
CPT/HCPCS: 99284; 96372; 73090; 70450; 70486; 72125; J1885

== ENCOUNTER 2018-12-24 13:35 | Emergency (ER) | payer OTHER ==
[2018-12-24] MEDS ORDERED: ASPIRIN 81 MG TABLET, CHEWABLE PO ONE (16:00)
--- NOTE | 2018-12-24 16:03 | ER Document Report ---
ED Medical Screen (RME) - General Chief Complaint: High Blood Pressure Stated Complaint: BLOOD PRESSURE ISSUE Time Seen by Provider: 12/24/18 15:54 Primary Care Provider: PETE MONTEZ FNP [Primary Care Provider] - Follow up as needed Notes: Patient is a 43-year-old female presents to the emergency department general complaint of head pressure, pressure and heaviness in the center to right side of her chest, dizziness and weakness intermittently for the last week. States she has been taking her blood pressure at work and it has been ranging in the 140s systolic over 100s diastolic. Patient states she was concerned about her blood pressure which is why she presents to the emergency room. Patient states she has also been under a lot of stress in the last couple of weeks. Past medical history: Bipolar Medications: None Allergies: Hydrocodone GENERAL: Alert, interacts well. No acute distress. HEAD: Normocephalic, atraumatic. EYES: Pupils equal, round, and reactive to light. Extraocular movements intact. LUNGS: Clear to auscultation bilaterally, no wheezes, rales, or rhonchi. No respiratory distress. HEART: Regular rate and rhythm. No murmur EXTREMITIES: Moves all 4 extremities spontaneously. No edema, normal radial and dorsalis pedis pulses bilaterally. No cyanosis. 5 out of 5 strength all 4 extremities NEUROLOGICAL: Alert and oriented x3. Normal speech. cranial nerves II through XII grossly intact I have greeted and performed a rapid initial assessment of this patient. A comprehensive ED assessment and evaluation of the patient, analysis of test results and completion of the medical decision making process will be conducted by additional ED providers. TRAVEL OUTSIDE OF THE [place] IN LAST 30 DAYS: No - Related Data Allergies/Adverse Reactions: hydrocodone [From Vicodin] Allergy (Verified 12/24/18 13:37) Past Medical History - Past Medical History Cardiac Medical History: Reports: Hx Hypercholesterolemia, Hx Hypertension Pulmonary Medical History: Reports: Hx Pneumonia Neurological Medical History: Reports: Hx Migraine Renal/ Medical History: Reports: Hx Ectopic , Hx Kidney Stones. Denies: Hx Peritoneal Dialysis Musculoskeltal Medical History: Reports Hx Arthritis, Reports Hx Musculoskeletal Deformity, Reports Hx Musculoskeletal Trauma Psychiatric Medical History: Reports: Hx Anxiety, Hx Attention Deficit Hyperactivity Disorder, Hx Bipolar Disorder, Hx Depression Past Surgical History: Reports: Hx Appendectomy, Hx Genitourinary Surgery - right ureteral stent - Immunizations Immunizations up to date: No Hx Diphtheria, Pertussis, Tetanus Vaccination: No - unk Physical Exam - Vital signs Vitals: Temp Pulse Resp BP Pulse Ox 98.0 F 87 18 142/93 H 98 12/24/18 13:40 12/24/18 13:40 12/24/18 13:40 12/24/18 13:40 12/24/18 13:40 Course - Vital Signs Vital signs: Temp Pulse Resp BP Pulse Ox 98.0 F 87 18 142/93 H 98 12/24/18 13:40 12/24/18 13:40 12/24/18 13:40 12/24/18 13:40 12/24/18 13:40 Doctor's Discharge - Discharge Referrals: PETE MONTEZ FNP [Primary Care Provider] - Follow up as needed
--- NOTE | 2018-12-24 16:29 | RADIOLOGY REPORT (SQ) ---
EXAM DESCRIPTION: CHEST SINGLE VIEW COMPLETED DATE/TIME: 12/24/2018 4:20 pm REASON FOR STUDY: cp COMPARISON: 12/22/2015. EXAM PARAMETERS: NUMBER OF VIEWS: One view. TECHNIQUE: Single frontal radiographic view of the chest acquired. RADIATION DOSE: NA LIMITATIONS: None. FINDINGS: LUNGS AND PLEURA: No opacities, masses or pneumothorax. No pleural effusion. MEDIASTINUM AND HILAR STRUCTURES: No masses. Contour normal. HEART AND VASCULAR STRUCTURES: Heart normal in size. Normal vasculature. BONES: No acute findings. HARDWARE: None in the chest. OTHER: No other significant finding. IMPRESSION: NO ACUTE RADIOGRAPHIC FINDING IN THE CHEST. TECHNICAL DOCUMENTATION: JOB ID: [id number] [employer]- All Rights Reserved Reading location - IP/workstation name: [email or web address]
[2018-12-24 17:13] LABS: ABSOLUTE LYMPHOCYTES (AUTO) 1.8 10^3/uL (0.5-4.7); ABSOLUTE MONOCYTES (AUTO) 0.4 10^3/uL (0.1-1.4); ABSOLUTE NEUT (AUTO) 4.8 10^3/uL (1.7-8.2); BASOPHILS % (AUTO) 0.4 % (0-2); EOSINOPHILS % (AUTO) 0.6 % (0-6); HEMATOCRIT 35.8 % (36.0-47.0); LYMPHOCYTES % (AUTO) 25.2 % (13-45); MEAN CORPUSCULAR HEMOGLOBIN 32.6 pg (27.0-33.4); MEAN CORPUSCULAR HGB CONC 33.5 g/dL (32.0-36.0); MEAN CORPUSCULAR VOLUME 97 fl (80-97); MONOCYTES % (AUTO) 6.3 % (3-13); PLATELET COUNT 200 10^3/uL (150-450); RED BLOOD COUNT 3.67 10^6/uL (3.72-5.28); RED CELL DISTRIBUTION WIDTH 15.7 % (11.5-14.0); SEGMENTED NEUTROPHILS % (AUTO) 67.5 % (42-78); TOTAL CELLS COUNTED % (AUTO) 100 %; WHITE BLOOD COUNT 7.1 10^3/uL (4.0-10.5)
[2018-12-24 17:28] LABS: ALANINE AMINOTRANSFERASE 43 U/L (9-52); ALBUMIN 4.7 g/dL (3.5-5.0); ALKALINE PHOSPHATASE 47 U/L (38-126); ANION GAP 12 (5-19); ASPARTATE AMINO TRANSFERASE 40 U/L (14-36); BILIRUBIN,DIRECT 0.2 mg/dL (0.0-0.4); BILIRUBIN,TOTAL 0.3 mg/dL (0.2-1.3); BLOOD UREA NITROGEN 11 mg/dL (7-20); CALCIUM 9.6 mg/dL (8.4-10.2); CARBON DIOXIDE 26 mmol/L (22-30); CHLORIDE 102 mmol/L (98-107); CREATINE KINASE 124 U/L (30-135); GLUCOSE 95 mg/dL (75-110); POTASSIUM 4.2 mmol/L (3.6-5.0); SODIUM 139.5 mmol/L (137-145); TOTAL PROTEIN 7.3 g/dL (6.3-8.2)
[2018-12-24 17:40] LABS: CREATINE KINASE MB 0.86 ng/mL (<4.55)
[2018-12-24 17:42] LABS: TROPONIN I < 0.012 ng/mL
--- NOTE | 2018-12-24 21:29 | RADIOLOGY REPORT (SQ) ---
CT HEAD WITHOUT IV CONTRAST HISTORY: Headache. COMPARISON: 04/21/2018 TECHNIQUE: CT scan of the brain without IV contrast. This exam was performed according to our departmental dose-optimization program, which includes automated exposure control, adjustment of the mA and/or kV according to patient size and/or use of iterative reconstruction technique. FINDINGS: The ventricles, cisterns, and sulci are unremarkable. No focal white matter lesions are seen. No evidence of acute infarction, intracranial hemorrhage, extra-axial fluid collection, or midline shift. No air-fluid levels are seen in the paranasal sinuses to suggest acute sinusitis. IMPRESSION: No acute intracranial findings.
[2018-12-24] MEDS ORDERED: KETOROLAC TROMETHAMINE 60 MG/2 ML SDV IM ONE (21:34)
[2018-12-24] MEDS ORDERED: ACETAMINOPHEN 325 MG TABLET PO ONE (21:35)
--- NOTE | 2018-12-24 21:40 | ER Document Report ---
ED Blood Pressure Problem - General Chief Complaint: High Blood Pressure Stated Complaint: BLOOD PRESSURE ISSUE Time Seen by Provider: 12/24/18 15:54 Primary Care Provider: PETE MONTEZ FNP [Primary Care Provider] - Follow up as needed Mode of Arrival: Ambulatory Information source: Patient TRAVEL OUTSIDE OF THE [place] IN LAST 30 DAYS: No - HPI Patient complains to provider of: High blood pressure - 43-year-old female presents for evaluation of high blood pressure, notes that she works at [employer] and is been checking her blood pressure daily for the last several weeks and every day it seems to be between 130 and 140 systolic, she is also noted to have a headache over the last 2 days for which she is taken Tylenol without any improvement in her symptoms, she does have a history of bipolar disorder is never had anything like this in the past, she was treated previously for high blood pressure and had been off of medications for the last couple of years and then had an insurance change making it difficult for her to receive care recently. She denies any other symptoms at this time no focal numbness or weakness, chest pain, shortness of breath, abdominal pain, diarrhea constipation dysuria fevers or rashes. - Related Data Allergies/Adverse Reactions: hydrocodone [From Vicodin] Allergy (Verified 12/24/18 13:37) Past Medical History - General Information source: Patient - Social History Smoking Status: Current Every Day Smoker Chew tobacco use (# tins/day): No Smoking Education Provided: Yes Frequency of alcohol use: None Drug Abuse: None Family History: Reviewed & Not Pertinent, Arthritis, DM, Malignancy Patient has suicidal ideation: No Patient has homicidal ideation: No - Past Medical History Cardiac Medical History: Reports: Hx Hypercholesterolemia, Hx Hypertension Pulmonary Medical History: Reports: Hx Pneumonia Neurological Medical History: Reports: Hx Migraine Renal/ Medical History: Reports: Hx Ectopic , Hx Kidney Stones. Denies: Hx Peritoneal Dialysis Musculoskeletal Medical History: Reports Hx Arthritis, Reports Hx Musculoskeletal Deformity, Reports Hx Musculoskeletal Trauma Psychiatric Medical History: Reports: Hx Anxiety, Hx Attention Deficit Hyperactivity Disorder, Hx Bipolar Disorder, Hx Depression Past Surgical History: Reports: Hx Appendectomy, Hx Genitourinary Surgery - right ureteral stent - Immunizations Immunizations up to date: No Hx Diphtheria, Pertussis, Tetanus Vaccination: No - unk Review of Systems - Review of Systems -: Yes All other systems reviewed and negative Physical Exam - Vital signs Vitals: Temp Pulse Resp BP Pulse Ox 98.0 F 87 18 142/93 H 98 12/24/18 13:40 12/24/18 13:40 12/24/18 13:40 12/24/18 13:40 12/24/18 13:40 Interpretation: Normal - General General appearance: Appears well, Alert - HEENT Head: Normocephalic, Atraumatic Eyes: Normal Pupils: PERRL - Respiratory Respiratory status: No respiratory distress Chest status: Nontender Breath sounds: Normal Chest palpation: Normal - Cardiovascular Rhythm: Regular Heart sounds: Normal auscultation Murmur: No - Abdominal Inspection: Normal Distension: No distension Bowel sounds: Normal Tenderness: Nontender Organomegaly: No organomegaly - Back Back: Normal, Nontender - Extremities General upper extremity: Normal inspection, Nontender, Normal color, Normal ROM, Normal temperature General lower extremity: Normal inspection, Nontender, Normal color, Normal ROM, Normal temperature, Normal weight bearing. No: Eze's sign - Neurological Neuro grossly intact: Yes Cognition: Normal Orientation: AAOx4 Beata Coma Scale Eye Opening: Spontaneous Beata Coma Scale Verbal: Oriented Beata Coma Scale Motor: Obeys Commands [place] Coma Scale Total: 15 Speech: Normal Motor strength normal: LUE, RUE, LLE, RLE Sensory: Normal - Psychological Associated symptoms: Normal affect, Normal mood - Skin Skin Temperature: Warm Skin Moisture: Dry Skin Color: Normal Course - Re-evaluation Re-evalutation: Is a 43-year-old female presents for concerns related to high blood pressure, given her history of hypertension in the past is understandable she is been long care though I do not believe that her symptoms of headache are resulting from her elevated blood pressure as her blood pressure has not been higher than 140 systolic. She had labs drawn through triage and is otherwise well-appearing with a benign neurologic examination she says she had a relatively hard recently in the past and is having some pain over the posterior aspect different than her normal migraine for her. We will obtain CT of the head. Labs are nondiagnostic, renal function is appropriate, no markers for infection no obvious anemia or thrombocytopenia or thrombocytosis. CT head is normal patient remains neurologically benign at this time. We will initiate a low-dose of lisinopril as well as Fioricet for headache as needed. She will be discharged with return precautions and expectant management she is encouraged to follow-up with her primary care physician for blood pressure check this week. - Vital Signs Vital signs: Temp Pulse Resp BP Pulse Ox 98.7 F 83 20 130/95 H 100 12/24/18 22:23 12/24/18 22:23 12/24/18 22:23 12/24/18 22:23 12/24/18 22:23 - Laboratory Result Diagrams: 12/24/18 16:54 12/24/18 16:54 Laboratory results interpreted by me: 12/24/18 12/24/18 16:54 16:54 RBC 3.67 L Hct 35.8 L RDW 15.7 H AST 40 H Discharge - Discharge Clinical Impression: Headache Qualifiers: Headache type: unspecified Headache chronicity pattern: unspecified pattern Intractability: not intractable Qualified Code(s): R51 - Headache Hypertension Qualifiers: Hypertension type: unspecified Qualified Code(s): I10 - Essential (primary) hypertension Condition: Good Disposition: HOME, SELF-CARE Instructions: Angiotensin Converting Enzyme Inhibitor Medication ([facility]), High Blood Pressure ([facility]) Additional Instructions: You were seen today in the emergency department for your headache and high blood pressure. you had evaluation including a physical exam. Your CAT scan of your head. The CAT scan of your head is normal. You will be started on a medication to help with your blood pressure. Take this medication daily. You need to check your blood pressure in the next 3 days, you should follow-up with your doctor this week for blood pressure recheck. You been given a medication to help with your headache. Use the medication only as needed. You can also use Tylenol Motrin as needed to help with your pain. Prescriptions: Butalb/Acetaminophen/Caffeine [Fioricet (50-325-40 mg) Tablet] 1 - 2 tab PO TID PRN #20 tab PRN Reason: Lisinopril [Zestril] 2.5 mg PO DAILY #30 tablet Forms: Elevated Blood Pressure, Smoking Cessation Education Referrals: PETE MONTEZ FNP [Primary Care Provider] - Follow up as needed
[2018-12-24 23:23] VITALS: BP 130/95
--- NOTE | 2018-12-25 07:43 | EKG REPORT ---
SEVERITY:- NORMAL ECG - SINUS RHYTHM : Confirmed by: Darell Echevarria MD 25-Dec-2018 07:43:20
== END 2018-12-24 22:23 | disposition home or self-care (01) ==
LOC: ER 13:35
DX: R51 Headache (principal); F17.200 Nicotine dependence, unspecified, uncomplicated; E78.00 Pure hypercholesterolemia, unspecified; I10 Essential (primary) hypertension
CPT/HCPCS: 93005; 99284; 96372; 36415; 82553; 82550; 85025; 80053; 84484; 71045; 70450; 93010; J1885

== ENCOUNTER 2019-01-04 09:43 | Emergency (ER) | payer OTHER ==
--- NOTE | 2019-01-04 13:34 | ER Document Report ---
ED General - General Chief Complaint: Head Injury Stated Complaint: HEAD INJURY Time Seen by Provider: 01/04/19 13:20 Primary Care Provider: PETE MONTEZ FNP [Primary Care Provider] - Follow up in 3-5 days TRAVEL OUTSIDE OF THE [place] IN LAST 30 DAYS: No - HPI Notes: Patient is a 43-year-old female that presents to the emergency department for chief complaint of head injury. Patient states yesterday evening she was drinking alcohol. She has had a lot of stress at home and became agitated. Patient states she began hitting her head against the wall. She hit on both sides. She denied any loss of consciousness. She states when she woke up this morning she started to have nausea and has had multiple episodes of emesis. She denies any double vision but states her vision seems blurry or foggy. She reports a mild diffuse headache that is worse when she lays flat and is improved some when she is sitting up. She denies being on any blood thinning medications. Past Medical History: Bipolar, hypertension Past Surgical History: Negative Social History: Daily tobacco. Occasional alcohol. Denies drug use Family History: Reviewed and noncontributory for presenting illness Allergies: Reviewed, see documented allergy list. REVIEW OF SYSTEMS: CONSTITUTIONAL : No fever No chills No diaphoresis No recent illness EENT: No vision changes No congestion No sore throat CARDIOVASCULAR: No chest pain No palpitations RESPIRATORY: No shortness of breath No cough No difficulty breathing GASTROINTESTINAL: No abdominal pain nausea vomiting No diarrhea GENITOURINARY: No dysuria No hematuria No difficulty urinating MUSCULOSKELETAL: No back pain No leg pain No arm pain SKIN: No rashes No lesions LYMPHATIC: No swollen, enlarged glands. NEUROLOGICAL: No lightheadedness headache No weakness No paresthesias PSYCHIATRIC: No anxiety No depression PHYSICAL EXAMINATION: Vital signs reviewed, nursing noted reviewed. GENERAL: Well-appearing, well-nourished and in no acute distress. HEAD: Hematoma on left parietal region, right parietal region and right occiput EYES: Eyes appear normal, extraocular movements intact, sclera anicteric, conjunctiva are normal. ENT: nares patent, oropharynx clear without exudates. Moist mucous membranes. NECK: No midline spinal tenderness. Bilateral paraspinal and sternocle idomastoid tenderness and mild spasm. Normal range of motion, supple without lymphadenopathy LUNGS: Breath sounds clear to auscultation bilaterally and equal. No wheezes rales or rhonchi. HEART: Regular rate and rhythm without murmurs ABDOMEN: Soft, nontender, normoactive bowel sounds. No rebound, guarding, or rigidity. No masses appreciated. EXTREMITIES: Nontender, good range of motion, no pitting or edema. NEUROLOGICAL: No focal neurological deficits. Moves all extremities spontaneously Motor and sensory grossly intact on exam. PSYCH: Normal mood, normal affect. SKIN: Warm, Dry, normal turgor, no rashes or lesions noted on exposed skin - Related Data Allergies/Adverse Reactions: hydrocodone [From Vicodin] Allergy (Verified 01/04/19 09:44) Past Medical History - Social History Smoking Status: Current Every Day Smoker Family History: Reviewed & Not Pertinent, Arthritis, DM, Malignancy - Past Medical History Cardiac Medical History: Reports: Hx Hypercholesterolemia, Hx Hypertension Pulmonary Medical History: Reports: Hx Pneumonia Neurological Medical History: Reports: Hx Migraine Renal/ Medical History: Reports: Hx Ectopic , Hx Kidney Stones. Denies: Hx Peritoneal Dialysis Musculoskeletal Medical History: Reports Hx Arthritis, Reports Hx Musculoskeletal Deformity, Reports Hx Musculoskeletal Trauma Psychiatric Medical History: Reports: Hx Anxiety, Hx Attention Deficit Hyperactivity Disorder, Hx Bipolar Disorder, Hx Depression Past Surgical History: Reports: Hx Appendectomy, Hx Genitourinary Surgery - right ureteral stent - Immunizations Immunizations up to date: No Hx Diphtheria, Pertussis, Tetanus Vaccination: No - unk Physical Exam - Vital signs Vitals: Temp Pulse Resp BP Pulse Ox 98.4 F 93 16 152/93 H 98 01/04/19 09:46 01/04/19 09:46 01/04/19 09:46 01/04/19 09:46 01/04/19 09:46 Course - Re-evaluation Re-evalutation: 01/04/19 13:34 Vitals reviewed. Nursing notes reviewed. 01/04/19 14:[address] scan shows no acute intracranial pathology. She is able to ambulate without difficulty. Her symptoms are consistent with concussion. She was counseled on second hit syndrome and concussion precautions. She was also counseled on return precautions. She verbalized understanding and will follow with her primary care doctor for reevaluation in the next few days. She is stable at discharge. Head CT 01/04/19 13:21 IMPRESSION: NORMAL BRAIN CT WITHOUT CONTRAST. EVIDENCE OF ACUTE STROKE: NO. - Vital Signs Vital signs: Temp Pulse Resp BP Pulse Ox 98.4 F 93 16 152/93 H 98 01/04/19 09:46 01/04/19 09:46 01/04/19 09:46 01/04/19 09:46 01/04/19 09:46 Discharge - Discharge Clinical Impression: Closed head injury Qualifiers: Encounter type: initial encounter Qualified Code(s): S09.90XA - Unspecified injury of head, initial encounter Condition: Stable Disposition: HOME, SELF-CARE Instructions: Concussion ([facility]), Head Injury Precautions ([facility]) Additional Instructions: Please return to the emergency department if you have any worsening, or concern of your symptoms. Please return to the emergency department if you develop chest pain, difficulty breathing, severe abdominal pain, or ongoing vomiting. Please follow-up with your primary care physician in 2-3 days and any other recommended physicians. If prescribed, take all medications as directed. If you have any questions or concerns do not hesitate to return the emergency department for evaluation. Return to the emergency room if you develop any worsening headache, new numbness, weakness or worsening vision changes. Or if you are unable to stop vomiting. Avoid any activity where you may hit her head again and do not purposely hit your head on any object for concern of further injury Referrals: PETE MONTEZ FNP [Primary Care Provider] - Follow up in 3-5 days
--- NOTE | 2019-01-04 14:19 | RADIOLOGY REPORT (SQ) ---
EXAM DESCRIPTION: CT HEAD WITHOUT COMPLETED DATE/TIME: 01/04/2019 2:04 pm REASON FOR STUDY: head injury COMPARISON: None. TECHNIQUE: Axial images acquired through the brain without intravenous contrast. Images reviewed wi th bone, brain and subdural windows. Additional sagittal and coronal reconstructions were generated. Images stored on PACS. All CT scanners at this facility use dose modulation, iterative reconstruction, and/or weight based d osing when appropriate to reduce radiation dose to as low as reasonably achievable (ALARA). [facility]: Dose Right [facility]: CareDose [facility]: Dose Right [facility]: Teradose 4D [facility]: MediVision RADIATION DOSE: CT Rad equipment meets quality standard of care and radiation dose reduction techniq ues were employed. CTDIvol: 20.0 - 24.8 mGy. DLP: 822 mGy-cm. mGy. LIMITATIONS: None. FINDINGS: VENTRICLES: Normal size and contour. CEREBRUM: No masses. No hemorrhage. No midline shift. No evidence for acute infarction. Normal gra y/white matter differentiation. No areas of low density in the white matter. CEREBELLUM: No masses. No hemorrhage. No alteration of density. No evidence for acute infarction. EXTRAAXIAL SPACES: No fluid collections. No masses. ORBITS AND GLOBE: No intra- or extraconal masses. Normal contour of globe without masses. CALVARIUM: No fracture. PARANASAL SINUSES: No fluid or mucosal thickening. SOFT TISSUES: No mass or hematoma. OTHER: No other significant finding. IMPRESSION: NORMAL BRAIN CT WITHOUT CONTRAST. EVIDENCE OF ACUTE STROKE: NO. COMMENT: Quality ID # [id number]: Final reports with documentation of one or more dose reduction techniques (e.g., Automated exposure control, adjustment of the mA and/or kV according to patient size, use of iterative reconstruction technique) TECHNICAL DOCUMENTATION: JOB ID: [id number]- All Rights Reserved Reading location - IP/workstation name: [email or web address]
[2019-01-04 15:06] VITALS: BP 143/86
== END 2019-01-04 15:05 | disposition home or self-care (01) ==
LOC: ER 09:43
DX: S00.03XA Contusion of scalp, initial encounter (principal); W22.01XA Walked into wall, initial encounter; R11.2 Nausea with vomiting, unspecified; R51 Headache; I10 Essential (primary) hypertension; F17.200 Nicotine dependence, unspecified, uncomplicated; Z88.5 Allergy status to narcotic agent
CPT/HCPCS: 70450; 99283

== ENCOUNTER 2019-02-27 12:52 | Emergency (ER) | payer OTHER ==
[2019-02-27] MEDS ORDERED: NORMAL SALINE 1000 ML 1,000 ML IV ONE (13:02)
[2019-02-27] MEDS ORDERED: KETOROLAC TROMETHAMINE INJ/PF 30 MG/1 ML SDV IV ONE (13:02)
[2019-02-27] MEDS ORDERED: ONDANSETRON HCL INJ/PF 4 MG/2 ML SDV IV ONE (13:02)
--- NOTE | 2019-02-27 13:05 | ER Document Report ---
ED Medical Screen (RME) - General Chief Complaint: Flank Pain Stated Complaint: ABDOMINAL PAIN Time Seen by Provider: 02/27/19 12:58 Primary Care Provider: PETE MONTEZ FNP [Primary Care Provider] - Follow up as needed TRAVEL OUTSIDE OF THE [place] IN LAST 30 DAYS: No - HPI Notes: 02/27/19 13:03 Patient is a 43-year-old female with a history of mental health disorder, kidney stones, and urinary infections who presents the emergency department complaining of suprapubic pressure, burning with urination, urinary frequency, left flank pain that radiates around into her groin, nausea/vomiting/diarrhea, chills that began over the last 24 hours. Patient believes that she has urinary infection, but is not sure about possible stone. She still eating and drinking, but does have a decreased p.o. intake. She is having normal bowel movements. Denies any headache, fever, neck pain, URI, sore throat, chest pain, palpitations, syncope, cough, shortness of breath, wheeze, dyspnea, urinary retention, loss of control of bowel or bladder, numbness/tingling, saddle anesthesia, muscle paralysis/weakness, or rash. Surgical h/o appendectomy per pt. I have treated and performed a rapid initial assessment of this patient. A comprehensive ED assessment and evaluation of the patient, analysis of test results and completion of medical decision making process will be conducted by additional ED providers. PHYSICAL EXAMINATION: GENERAL: Well-appearing, well-nourished and in no acute distress. A&Ox4. Answers questions appropriately. LUNGS: Breath sounds clear to auscultation bilaterally and equal. No wheezes rales or rhonchi. HEART: Regular rate and rhythm without murmurs, rubs, gallops. ABDOMEN: Soft, nondistended abdomen. No guarding, no rebound. Normal bowel rakesh nds present. + left >rt CVA tenderness. + mild suprapubic tenderness (cannot elicit thorough abd exam w/o table, however). Extremities: No cyanosis, clubbing, or edema b/l. NEUROLOGICAL: Normal speech, normal gait. PSYCH: Normal mood, normal affect. - Related Data Allergies/Adverse Reactions: hydrocodone [From Vicodin] Allergy (Verified 02/27/19 12:52) Past Medical History - Past Medical History Cardiac Medical History: Reports: Hx Hypercholesterolemia, Hx Hypertension Pulmonary Medical History: Reports: Hx Pneumonia Neurological Medical History: Reports: Hx Migraine Renal/ Medical History: Reports: Hx Ectopic , Hx Kidney Stones. Denies: Hx Peritoneal Dialysis Musculoskeltal Medical History: Reports Hx Arthritis, Reports Hx Musculoskeletal Deformity, Reports Hx Musculoskeletal Trauma Psychiatric Medical History: Reports: Hx Anxiety, Hx Attention Deficit Hyperactivity Disorder, Hx Bipolar Disorder, Hx Depression Past Surgical History: Reports: Hx Appendectomy, Hx Genitourinary Surgery - right ureteral stent - Immunizations Immunizations up to date: No Hx Diphtheria, Pertussis, Tetanus Vaccination: No - unk Physical Exam - Vital signs Vitals: Temp Pulse Resp BP Pulse Ox 98.2 F 122 H 24 H 158/91 H 100 02/27/19 12:58 02/27/19 12:58 02/27/19 12:58 02/27/19 12:58 02/27/19 12:58 Course - Vital Signs Vital signs: Temp Pulse Resp BP Pulse Ox 98.2 F 122 H 24 H 158/91 H 100 02/27/19 12:58 02/27/19 12:58 02/27/19 12:58 02/27/19 12:58 02/27/19 12:58 Doctor's Discharge - Discharge Referrals: PETE MONTEZ FNP [Primary Care Provider] - Follow up as needed
[2019-02-27] MEDS ORDERED: PHENAZOPYRIDINE HCL 100 MG TABLET PO ONE (13:32)
--- NOTE | 2019-02-27 13:38 | ER Document Report ---
ED GI/ - General Chief Complaint: Flank Pain Stated Complaint: ABDOMINAL PAIN Time Seen by Provider: 02/27/19 12:58 Primary Care Provider: PETE MONTEZ FNP [Primary Care Provider] - Follow up in 3-5 days Mode of Arrival: Ambulatory Information source: Patient Notes: 43-year-old female presents to ED for complaint of flank pain and bladder pressure and pain. She states she feels like she has a kidney infection. She states she has been throwing up all day. Patient is alert oriented respirations regular and unlabored speaking in full sentences walks with a even steady gait. Patient was seen in the pit area blood and urine and CT have already been ordered. Patient has an IV fluids running when I first examined her. She also has been given Toradol and nausea medicine. I have ordered her some Pyridium and completed a diarrhea and chlamydia swabs as well as a wet mount. These have been sent to the lab. TRAVEL OUTSIDE OF THE [place] IN LAST 30 DAYS: No - HPI Patient complains to provider of: Abdominal pain, Flank pain, Pelvic pain, Vomiting Onset: Other - several days Timing/Duration: Gradual, Intermittent, Worse Quality of pain: Sharp, Throbbing Severity at maximum: Moderate Severity in ED: Moderate Pain Level: 4 Location: Left flank, Suprapubic Vaginal bleeding (Compared to normal period): None Associated symptoms: Nausea, Urinary frequency, Urinary urgency, Vomiting. denies: Vaginal discharge Exacerbated by: Movement, Walking Relieved by: Denies Similar symptoms previously: Yes Recently seen / treated by doctor: No - Related Data Allergies/Adverse Reactions: hydrocodone [From Vicodin] Allergy (Verified 02/27/19 12:52) Past Medical History - General Information source: Patient - Social History Smoking Status: Current Every Day Smoker Cigarette use (# per day): Yes - 6-20 a day Chew tobacco use (# tins/day): No Smoking Education Provided: Yes - 4 min Frequency of alcohol use: Social - 3-4 a week Drug Abuse: None Occupation: [employer] Lives with: Family Family History: Reviewed & Not Pertinent, Arthritis, DM, Malignancy Patient has suicidal ideation: No Patient has homicidal ideation: No - Past Medical History Cardiac Medical History: Reports: Hx Hypercholesterolemia, Hx Hypertension Pulmonary Medical History: Reports: Hx Pneumonia EENT Medical History: Reports: None Neurological Medical History: Reports: Hx Migraine Endocrine Medical History: Reports: None Renal/ Medical History: Reports: Hx Ectopic , Hx Kidney Stones, Other - Right kidney damage only 2% function Malignancy Medical History: Reports: None GI Medical History: Reports: None Musculoskeletal Medical History: Reports Hx Arthritis, Reports Hx Musculoskeletal Deformity, Reports Hx Musculoskeletal Trauma Skin Medical History: Reports None Psychiatric Medical History: Reports: Hx Anxiety, Hx Attention Deficit Hyperactivity Disorder, Hx Bipolar Disorder, Hx Depression Traumatic Medical History: Reports: None Infectious Medical History: Reports: None Past Surgical History: Reports: Hx Appendectomy, Hx Genitourinary Surgery - right ureteral stent - Immunizations Immunizations up to date: No Hx Diphtheria, Pertussis, Tetanus Vaccination: No - unk Review of Systems - Review of Systems Constitutional: No symptoms reported EENT: No symptoms reported Cardiovascular: No symptoms reported Respiratory: No symptoms reported Gastrointestinal: Nausea, Vomiting Genitourinary: Flank pain, Other - Suprapubic pain Female Genitourinary: No symptoms reported Musculoskeletal: No symptoms reported Skin: No symptoms reported Hematologic/Lymphatic: No symptoms reported Neurological/Psychological: No symptoms reported -: Yes All other systems reviewed and negative Physical Exam - Vital signs Vitals: Temp Pulse Resp BP Pulse Ox 98.2 F 122 H 24 H 158/91 H 100 02/27/19 12:58 02/27/19 12:58 02/27/19 12:58 02/27/19 12:58 02/27/19 12:58 Interpretation: Normal - General General appearance: Appears well, Alert - HEENT Head: Normocephalic, Atraumatic Eyes: Normal Pupils: PERRL - Respiratory Respiratory status: No respiratory distress Chest status: Nontender Breath sounds: Normal Chest palpation: Normal - Cardiovascular Rhythm: Regular Heart sounds: Normal auscultation Murmur: No - Abdominal Inspection: Normal Distension: No distension Bowel sounds: Normal Tenderness: Tender - Suprapubic Organomegaly: No organomegaly - Genitourinary Notes: Patient requested testing for GC and chlamydia. Self swabs were completed as she did not have any vaginal pain or discomfort. - Back Back: Normal, Nontender - Extremities General upper extremity: Normal inspection, Nontender, Normal color, Normal ROM, Normal temperature General lower extremity: Normal inspection, Nontender, Normal color, Normal ROM, Normal temperature, Normal weight bearing. No: Eze's sign - Neurological Neuro grossly intact: Yes Cognition: Normal Orientation: AAOx4 Cooks Coma Scale Eye Opening: Spontaneous Cooks Coma Scale Verbal: Oriented Beata Coma Scale Motor: Obeys Commands Beata Coma Scale Total: 15 Speech: Normal Motor strength normal: LUE, RUE, LLE, RLE Sensory: Normal - Psychological Associated symptoms: Normal affect, Normal mood - Skin Skin Temperature: Warm Skin Moisture: Dry Skin Color: Normal Course - Re-evaluation Re-evalutation: 02/27/19 16:20 Patient was treated with Toradol, nausea medicine, Pyridium, Rocephin IV, doxycycline, Flagyl and IV fluid for her left flank pain with pyelonephritis bacterial vaginosis and nausea and vomiting. She was discharged home with prescription for doxycycline Flagyl and Phenergan. Patient to follow-up with primary care doctor. Patient was given a Percocet and Tylenol in the emergency room. She was not discharged home with any narcotics. Patient verbalized understanding and agreement with treatment plan and was discharged home. She states her pain was better as well as her nausea. Vital signs were much improved. - Vital Signs Vital signs: Temp Pulse Resp BP Pulse Ox 99.2 F 98 19 139/90 H 97 02/27/19 16:02 02/27/19 16:02 02/27/19 16:02 02/27/19 16:02 02/27/19 16:02 - Laboratory Result Diagrams: 02/27/19 13:17 02/27/19 13:17 Laboratory results interpreted by me: 02/27/19 02/27/19 02/27/19 13:10 13:17 13:17 RBC 3.45 L Hgb 11.4 L Hct 33.9 L MCV 98 H RDW 16.7 H Seg Neutrophils % 89.6 H Lymphocytes % 6.0 L Absolute Neutrophils 8.3 H Glucose 112 H Urine Protein 100 H Urine Blood MODERATE H Urine Nitrite POSITIVE H Urine Urobilinogen 4.0 H Ur Leukocyte Esterase LARGE H - Diagnostic Test Radiology reviewed: Image reviewed, Reports reviewed Discharge - Discharge Clinical Impression: Pyelonephritis, BV (bacterial vaginosis) Nausea & vomiting Qualifiers: Vomiting type: unspecified Vomiting Intractability: non-intractable Qualified C ode(s): R11.2 - Nausea with vomiting, unspecified Condition: Stable Disposition: HOME, SELF-CARE Additional Instructions: Pyelonephritis Your evaluation shows evidence of pyelonephritis. This is an infection in the kidney. Typical symptoms are fever, pain in the flank, pain on urination, and frequent urination. Many cases of pyelonephritis can be treated at home. Hospital care may be necessary for patients who are very ill, or elderly or . Pyelonephritis is treated with antibiotics. Be sure to take all the medication as prescribed. Drink plenty of liquids (about three quarts per day). You may take acetaminophen for fever. You should feel significantly improved within two days. You should have a recheck of your urine in about one week to insure that the infection is gone. Return for a re-examination if your symptoms worsen in any way -- such as high fever, shaking chills, severe weakness or dizziness, severe pain, or inability to pass your urine. VAGINOSIS, BACTERIAL: Your exam shows you have bacterial vaginosis. This condition is due to an overgrowth of bacteria in the vagina. Symptoms may include vaginal itching or pain, a smelly discharge, and sometimes burning with urination. Normally this is not transmitted by sexual contact. Vaginosis can be treated with oral or topical antibiotics. Metronidazole (Flagyl) pills are usually effective. Topical vaginal creams include Cleocin and Metro-Gel. You should avoid sexual contact until your symptoms are all better. Call the doctor if you develop pelvic pain, fever, or problems with urination, or if you don't improve as expected. ANTIBIOTIC THERAPY: You have been given an antibiotic prescription. It's important that you take all the medication, unless instructed otherwise by your physician. Failure to complete the entire course can result in relapse of your condition. Common side effects of antibiotics include nausea, intestinal cramping, or diarrhea. Women may develop vaginal yeast infections, and babies can get yeast (thrush) in the mouth following the use of antibiotics. Contact your physician if you develop significant side effects from this medication. Allergy to this antibiotic can result in hives, wheezing, faintness, or itching. If symptoms of allergy occur, stop the medication and call the doctor. Rocephin You have been given an injection of an antibiotic called Rocephin (ceftriaxone). Sometimes the injection must be combined with antibiotic pills. For some infections, such as an uncomplicated ear infection, Rocephin provides all the antibiotic that's needed. The antibiotic will be in your body for about two days. For serious infections, we usually repeat doses of Rocephin daily. Side effects are very unusual following a shot. Women may develop vaginal yeast infections, and babies can get yeast (thrush) in the mouth following the use of antibiotics. Contact your physician if you have symptoms with this medication. Allergy to this antibiotic can result in hives, wheezing, faintness, or itching. If symptoms of allergy occur, call the doctor at once. DOXYCYCLINE: Doxycycline (Vibramycin, Doryx) is an antibiotic of the tetracycline family. This type of drug is useful for infections of the respiratory tract and genital tract, and is sometimes used for intestinal infections. Unlike most tetracyclines, doxycycline can be taken with food. It is longer acting, and (usually) less prone to side effects than regular tetracycline. Tetracycline antibiotics can stain immature teeth and SHOULD NOT BE TAKEN BY CHILDREN, NURSING MOTHERS, OR WOMEN. Tetracyclines can make you more prone to sunburn. Abdominal cramping, nausea, and diarrhea are occasional side effects. Women may experience vaginal yeast infections. Call the doctor at once if you develop hives, itching, shortness of breath, or lightheadedness. AZITHROMYCIN: Azithromycin (Zithromax) is a broad spectrum antibiotic in the same class as erythromycin. It can treat a variety of bacterial infections, but is most frequently used for respiratory infections. Azithromycin is extremely long-lasting. It accumulates in body tissues and continues to kill bacteria for many days. In order to improve absorption, Azithromycin should be taken at least one hour before or two hours after a meal. It does not have the same strong tendency to upset the stomach as erythromycin and is usually very well tolerated. Patients who have had a rash or other true allergic reactions to erythromycin should not take this medication. Call if you develop gastrointes tinal distress, severe diarrhea, rash, hives, itching, or shortness of breath. METRONIDAZOLE: Metronidazole (Flagyl) has been prescribed. This medication is used to kill a type of bacteria called anaerobes, and protozoan parasites such as trichomonas and Giardia. Flagyl often causes a metallic taste in the mouth and mild nausea. Do not use alcohol in any form with Flagyl (including alcohol in medication elixirs). Flagyl interacts with alcohol to cause flushing, palpitations, h eadache, stomach cramps, and vomiting. Do not use Flagyl if you are taking Antabuse (disulfiram). Call the doctor at once if you develop rash, shortness of breath, itching, or lightheadedness. Intravenous (IV) Fluids As part of your care today, you received intravenous (IV) fluids. IV fluids are administered to patients who are dehydrated or to those who have certain chemical (electrolyte) abnormalities that need correcting. Toradol Injection You have been given an injection of ketorolac tromethamine (Toradol). This is an excellent, safe drug for pain control. It also has potent antiinflammatory action. You should have significant pain relief within about one hour. Toradol is not addicting and is non-sedating. It does not interfere with driving or work. Call or return if you develop itching, hives, shortness of breath, or rash. Antinausea Medication You have been given a medication to suppress nausea and vomiting. This type of medication can be given as a shot, pill, or suppository. It will usually last for many hours. Pills and shots usually last six to eight hours, suppositories last about 12 hours. For the typical illness, only one or two doses of the medication may be necessary. Mild lightheadedness may occur. This type of medicine can cause drowsiness. Do not drive or operate dangerous machinery while under its influence. Do not mix with alcohol. See your doctor at once if you have muscle spasms or tightness, or uncontrollable motions (particularly of the neck, mouth, or jaw). Persistent vomiting or severe lightheadedness should also be evaluated by the physician. FOLLOW-UP CARE: If you have been referred to a physician for follow-up care, call the physicians office for an appointment as you were instructed or within the next two days. If you experience worsening or a significant change in your symptoms, notify the physician immediately or return to the Emergency Department at any time for re-evaluation. Prescriptions: Doxycycline Hyclate 100 mg PO BID #20 capsule Metronidazole [Flagyl 500 mg Tablet] 500 mg PO BID #14 tablet Phenazopyridine HCl [Pyridium 100 Mg Tablet] 100 mg PO BID #10 tablet Promethazine HCl [Phenergan 25 mg Tablet] 25 mg PO Q6H PRN #15 tablet PRN Reason: Forms: Elevated Blood Pressure, Smoking Cessation Education, Return to Work Referrals: MONTEZ,PETE, ENRICHMENT DIRECTOR [Primary Care Provider] - Follow up in 3-5 days
[2019-02-27 13:43] LABS: ABSOLUTE LYMPHOCYTES (AUTO) 0.6 10^3/uL (0.5-4.7); ABSOLUTE MONOCYTES (AUTO) 0.4 10^3/uL (0.1-1.4); ABSOLUTE NEUT (AUTO) 8.3 10^3/uL (1.7-8.2); BASOPHILS % (AUTO) 0.1 % (0-2); HEMATOCRIT 33.9 % (36.0-47.0); HEMOGLOBIN 11.4 g/dL (12.0-15.5); MEAN CORPUSCULAR HGB CONC 33.6 g/dL (32.0-36.0); MEAN CORPUSCULAR VOLUME 98 fl (80-97); MONOCYTES % (AUTO) 4.3 % (3-13); PLATELET COUNT 186 10^3/uL (150-450); RED BLOOD COUNT 3.45 10^6/uL (3.72-5.28); RED CELL DISTRIBUTION WIDTH 16.7 % (11.5-14.0); SEGMENTED NEUTROPHILS % (AUTO) 89.6 % (42-78); TOTAL CELLS COUNTED % (AUTO) 100 %; WHITE BLOOD COUNT 9.3 10^3/uL (4.0-10.5)
[2019-02-27 13:50] LABS: BACTERIA (WET MOUNT) 3+ BACTERIA SEEN; T.VAGINALIS (WET MOUNT) NO TRICHOMONAS SEEN; WBCS (WET MOUNT) FEW WBCS SEEN; YEAST (WET MOUNT) NO YEAST SEEN
[2019-02-27 13:50] LABS: APPEARANCE,URINE TURBID; BILIRUBIN,URINE NEGATIVE (NEGATIVE); COLOR,URINE YELLOW; GLUCOSE, URINE NEGATIVE (NEGATIVE); KETONES,URINE NEGATIVE (NEGATIVE); LEUKOCYTE ESTERASE,URINE LARGE (NEGATIVE); NITRITE,URINE POSITIVE (NEGATIVE); PROTEIN,URINE 100 mg/dL (NEGATIVE)
[2019-02-27 13:51] LABS: EPITHELIALS (WET MOUNT) 3+ EPITHELIALS SEEN
[2019-02-27 14:00] LABS: ALANINE AMINOTRANSFERASE 36 U/L (9-52); ALBUMIN 4.3 g/dL (3.5-5.0); ALKALINE PHOSPHATASE 50 U/L (38-126); ANION GAP 10 (5-19); ASPARTATE AMINO TRANSFERASE 28 U/L (14-36); BILIRUBIN,DIRECT 0.3 mg/dL (0.0-0.4); BILIRUBIN,TOTAL 0.9 mg/dL (0.2-1.3); BLOOD UREA NITROGEN 8 mg/dL (7-20); CALCIUM 9.3 mg/dL (8.4-10.2); CARBON DIOXIDE 27 mmol/L (22-30); CHLORIDE 101 mmol/L (98-107); GLUCOSE 112 mg/dL (75-110); LIPASE 45.8 U/L (23-300); POTASSIUM 3.7 mmol/L (3.6-5.0); TOTAL PROTEIN 7.5 g/dL (6.3-8.2)
--- NOTE | 2019-02-27 14:07 | RADIOLOGY REPORT (SQ) ---
EXAM DESCRIPTION: CT ABD/PELVIS NO ORAL OR IV COMPLETED DATE/TIME: 02/27/2019 1:52 pm REASON FOR STUDY: Left flank pain, dysuria COMPARISON: 02/21/2018 TECHNIQUE: CT scan of the abdomen and pelvis performed without intravenous or oral contrast. Images reviewed with lung, soft tissue, and bone windows. Reconstructed coronal and sagittal MPR images revi ewed. All images stored on PACS. All CT scanners at this facility use dose modulation, iterative reconstruction, and/or weight based d osing when appropriate to reduce radiation dose to as low as reasonably achievable (ALARA). [facility]: Dose Right [facility]: CareDose [facility]: Dose Right [facility]: Teradose 4D [facility]: Smart Albiorex RADIATION DOSE: CT Rad equipment meets quality standard of care and radiation dose reduction techniq ues were employed. CTDIvol: 10.7 mGy. DLP: 566 mGy-cm.mGy. LIMITATIONS: None. FINDINGS: LOWER CHEST: No significant findings. No nodules or infiltrates. NON-CONTRASTED LIVER, SPLEEN, ADRENALS: Evaluation limited by lack of IV contrast. No identified sign ificant masses. PANCREAS: No masses. No peripancreatic inflammatory changes. GALLBLADDER: No identified stones by CT criteria. No inflammatory changes to suggest cholecystitis. RIGHT KIDNEY AND URETER: Redemonstrated chronic atrophy. Multiple tiny nonobstructive calculi. No s uspicious masses. Assessment limited by lack of IV contrast. No hydronephrosis or hydroureter. LEFT KIDNEY AND URETER: Fat stranding about the left kidney. No suspicious masses. Assessment limite d by lack of IV contrast. Punctuate nonobstructive calculus of the posterior midportion. No hydro nephrosis or hydroureter. AORTA AND RETROPERITONEUM: No aneurysm. No retroperitoneal masses or adenopathy. BOWEL AND PERITONEAL CAVITY: No obvious masses or inflammatory changes. No free fluid. APPENDIX: Surgically absent. PELVIS, BLADDER, AND ABDOMINAL WALL:No abnormal masses. No free fluid. Bladder normal. BONES: No significant findings. OTHER: No other significant finding. IMPRESSION: Fat stranding about the left kidney, new from prior examination and concerning for pyelo nephritis. Correlate with urinalysis. No hydronephrosis. Tiny nonobstructive bilateral renal calcu li. COMMENT: Quality ID # [id number]: Final reports with documentation of one or more dose reduction techniques (e.g., Automated exposure control, adjustment of the mA and/or kV according to patient size, use of iterative reconstruction technique) TECHNICAL DOCUMENTATION: JOB ID: [id number] [employer]- All Rights Reserved Reading location - IP/workstation name: [email or web address]
[2019-02-27] MEDS ORDERED: METRONIDAZOLE 500 MG TABLET PO ONE (14:18)
[2019-02-27] MEDS ORDERED: CEFTRIAXONE 1 GM/D5W RTU 1 GM/50 ML RTUPB IV ONE (14:18)
[2019-02-27] MEDS ORDERED: AZITHROMYCIN 250 MG TABLET PO ONE (14:18)
[2019-02-27] MEDS ORDERED: DOXYCYCLINE HYCLATE 100 MG TABLET PO ONE (14:18)
[2019-02-27] MEDS ORDERED: OXYCODONE-ACETAMINOPHEN 5-325 MG TABLET PO ONE (14:39)
[2019-02-27 15:24] LABS: CHLAM PCR NOT DETECTED (NOT DETECT); GON PCR NOT DETECTED (NOT DETECT)
[2019-02-27] MEDS ORDERED: ACETAMINOPHEN 325 MG TABLET PO ONE (15:46)
[2019-02-27 16:03] VITALS: BP 139/90
== END 2019-02-27 16:02 | disposition home or self-care (01) ==
LOC: ER 12:52
DX: N12 Tubulo-interstitial nephritis, not specified as acute or chronic (principal); N76.0 Acute vaginitis; B96.89 Other specified bacterial agents as the cause of diseases classified elsewhere; R11.2 Nausea with vomiting, unspecified; I10 Essential (primary) hypertension; F17.210 Nicotine dependence, cigarettes, uncomplicated; Z71.6 Tobacco abuse counseling; Z88.5 Allergy status to narcotic agent; Z87.442 Personal history of urinary calculi
CPT/HCPCS: 99406; 99284; 96361; 96375; 96365; 96366; 36415; 87086; 87210; 83690; 85025; 87088; 80053; 81001; 87186; 87491; 87591; 74176; J1885; J3490; J2405; J7030; J0696

== ENCOUNTER 2019-05-18 15:50 | Emergency (ER) | payer OTHER ==
[2019-05-18] MEDS ORDERED: ASPIRIN 81 MG TABLET, CHEWABLE PO ONE (15:59)
--- NOTE | 2019-05-18 16:01 | ER Document Report ---
ED Medical Screen (RME) - General Chief Complaint: Chest Pain Stated Complaint: CHEST PAIN Time Seen by Provider: 05/18/19 15:59 Primary Care Provider: PETE MONTEZ FNP [Primary Care Provider] - Follow up as needed Notes: Patient is a 44-year-old female actively hyperventilating and crying. States she was at work when she got sudden sharp chest pains in the middle of her chest. States she knows that she is very anxious. States she has generalized numbness and tingling in her lips and nose. States she also feels as though her hands and her feet are "going numb." GENERAL: Alert, actively crying, hyperventilating. LUNGS: Clear to auscultation bilaterally, no wheezes, rales, or rhonchi. No respiratory distress. I have greeted and performed a rapid initial assessment of this patient. A comprehensive ED assessment and evaluation of the patient, analysis of test results and completion of the medical decision making process will be conducted by additional ED providers. I have specifically instructed the patient or family members with the patient to immediately return to any nursing staff should anything change in the patient's condition or with their chief complaint. This medical record was dictated with voice recognizing software. There may be grammatical, syntax errors that are unintended. TRAVEL OUTSIDE OF THE [place] IN LAST 30 DAYS: No - Related Data Allergies/Adverse Reactions: hydrocodone [From Vicodin] Allergy (Verified 05/18/19 15:54) Past Medical History - Past Medical History Cardiac Medical History: Reports: Hx Hypercholesterolemia, Hx Hypertension Pulmonary Medical History: Reports: Hx Pneumonia Neurological Medical History: Reports: Hx Migraine Renal/ Medical History: Reports: Hx Ectopic , Hx Kidney Stones. Denies: Hx Peritoneal Dialysis Musculoskeltal Medical History: Reports Hx Arthritis, Reports Hx Musculoskeletal Deformity, Reports Hx Musculoskeletal Trauma Psychiatric Medical History: Reports: Hx Anxiety, Hx Attention Deficit Hyperactivity Disorder, Hx Bipolar Disorder, Hx Depression Past Surgical History: Reports: Hx Appendectomy, Hx Genitourinary Surgery - right ureteral stent - Immunizations Immunizations up to date: No Hx Diphtheria, Pertussis, Tetanus Vaccination: No - unk Physical Exam - Vital signs Vitals: Temp Pulse Resp BP Pulse Ox 98.1 F 82 22 H 153/117 H 99 05/18/19 15:54 05/18/19 15:54 05/18/19 15:54 05/18/19 15:54 05/18/19 15:54 Course - Vital Signs Vital signs: Temp Pulse Resp BP Pulse Ox 98.1 F 82 22 H 153/117 H 99 05/18/19 15:54 05/18/19 15:54 05/18/19 15:54 05/18/19 15:54 05/18/19 15:54 Doctor's Discharge - Discharge Referrals: PETE MONTEZ FNP [Primary Care Provider] - Follow up as needed
--- NOTE | 2019-05-18 16:52 | RADIOLOGY REPORT (SQ) ---
EXAM DESCRIPTION: CHEST SINGLE VIEW COMPLETED DATE/TIME: 05/18/2019 4:34 pm REASON FOR STUDY: CP COMPARISON: 12/24/2018 EXAM PARAMETERS: NUMBER OF VIEWS: One view. TECHNIQUE: Single frontal radiographic view of the chest acquired. RADIATION DOSE: NA LIMITATIONS: None. FINDINGS: LUNGS AND PLEURA: No opacities, masses or pneumothorax. No pleural effusion. MEDIASTINUM AND HILAR STRUCTURES: No masses. Contour normal. HEART AND VASCULAR STRUCTURES: Heart normal in size. Normal vasculature. BONES: No acute findings. HARDWARE: None in the chest. OTHER: No other significant finding. IMPRESSION: NO ACUTE RADIOGRAPHIC FINDING IN THE CHEST. TECHNICAL DOCUMENTATION: JOB ID: [id number] [employer]- All Rights Reserved Reading location - IP/workstation name: [email or web address]
[2019-05-18 17:38] LABS: ABSOLUTE LYMPHOCYTES (AUTO) 1.3 10^3/uL (0.5-4.7); ABSOLUTE MONOCYTES (AUTO) 0.4 10^3/uL (0.1-1.4); ABSOLUTE NEUT (AUTO) 4.9 10^3/uL (1.7-8.2); BASOPHILS % (AUTO) 0.4 % (0-2); EOSINOPHILS % (AUTO) 0.4 % (0-6); HEMATOCRIT 35.9 % (36.0-47.0); LYMPHOCYTES % (AUTO) 19.8 % (13-45); MEAN CORPUSCULAR HEMOGLOBIN 32.4 pg (27.0-33.4); MEAN CORPUSCULAR HGB CONC 33.5 g/dL (32.0-36.0); MEAN CORPUSCULAR VOLUME 97 fl (80-97); MONOCYTES % (AUTO) 5.7 % (3-13); PLATELET COUNT 201 10^3/uL (150-450); RED CELL DISTRIBUTION WIDTH 15.4 % (11.5-14.0); SEGMENTED NEUTROPHILS % (AUTO) 73.7 % (42-78); TOTAL CELLS COUNTED % (AUTO) 100 %; WHITE BLOOD COUNT 6.6 10^3/uL (4.0-10.5)
[2019-05-18 18:03] LABS: ALANINE AMINOTRANSFERASE 34 U/L (9-52); ALBUMIN 4.2 g/dL (3.5-5.0); ALKALINE PHOSPHATASE 49 U/L (38-126); ANION GAP 10 (5-19); ASPARTATE AMINO TRANSFERASE 30 U/L (14-36); BILIRUBIN,DIRECT 0.2 mg/dL (0.0-0.4); BILIRUBIN,TOTAL 0.7 mg/dL (0.2-1.3); BLOOD UREA NITROGEN 14 mg/dL (7-20); CALCIUM 9.5 mg/dL (8.4-10.2); CARBON DIOXIDE 23 mmol/L (22-30); CHLORIDE 105 mmol/L (98-107); CREATINE KINASE 199 U/L (30-135); GLUCOSE 87 mg/dL (75-110); SODIUM 137.8 mmol/L (137-145)
[2019-05-18 18:14] LABS: CREATINE KINASE MB 2.13 ng/mL (<4.55)
[2019-05-18 18:15] LABS: TROPONIN I < 0.012 ng/mL
[2019-05-18] MEDS ORDERED: METOPROLOL SUCCINATE 25 MG TAB.SR.24H PO ONE (19:47)
--- NOTE | 2019-05-18 20:09 | ER Document Report ---
ED General - General Chief Complaint: Chest Pain Stated Complaint: CHEST PAIN Time Seen by Provider: 05/18/19 15:59 Primary Care Provider: PETE MONTEZ FNP [Primary Care Provider] - Follow up as needed Notes: 44-year-old female actively hyperventilating and crying. States she was at work when she got sudden sharp chest pains in the middle of her chest. States she knows that she is very anxious. States she has generalized numbness and tingling in her lips and nose. States she also feels as though her hands and her feet are "going numb." TRAVEL OUTSIDE OF THE [place] IN LAST 30 DAYS: No - Related Data Allergies/Adverse Reactions: hydrocodone [From Vicodin] Allergy (Verified 05/18/19 15:54) Past Medical History - Social History Smoking Status: Current Every Day Smoker Family History: Reviewed & Not Pertinent, Arthritis, DM, Malignancy - Past Medical History Cardiac Medical History: Reports: Hx Hypercholesterolemia, Hx Hypertension Pulmonary Medical History: Reports: Hx Pneumonia Neurological Medical History: Reports: Hx Migraine Renal/ Medical History: Reports: Hx Ectopic , Hx Kidney Stones. Denies: Hx Peritoneal Dialysis Musculoskeletal Medical History: Reports Hx Arthritis, Reports Hx Musculoskeletal Deformity, Reports Hx Musculoskeletal Trauma Psychiatric Medical History: Reports: Hx Anxiety, Hx Attention Deficit Hyperactivity Disorder, Hx Bipolar Disorder, Hx Depression Past Surgical History: Reports: Hx Appendectomy, Hx Genitourinary Surgery - right ureteral stent - Immunizations Immunizations up to date: No Hx Diphtheria, Pertussis, Tetanus Vaccination: No - unk Review of Systems - Review of Systems Constitutional: denies: Chills, Fever Cardiovascular: Chest pain, Dyspnea Respiratory: Short of breath. denies: Cough Gastrointestinal: Nausea. denies: Abdomen distended, Abdominal pain, Vomiting Neurological/Psychological: Anxiety, Tingling. denies: Headaches -: Yes All other systems reviewed and negative Physical Exam - Vital signs Vitals: Temp Pulse Resp BP Pulse Ox 98.1 F 82 22 H 153/117 H 99 05/18/19 15:54 05/18/19 15:54 05/18/19 15:54 05/18/19 15:54 05/18/19 15:54 - Notes Notes: GENERAL_APPEARANCE: well_nourished, alert, cooperative, anxious appearing VITALS: reviewed, see vital signs table. HEAD: no_swelling\\tenderness on the head. EYES: PERRL, EOMI, conjunctiva_clear. NOSE: no_nasal_discharge. MOUTH: (-)decreased moisture. THROAT: no_tonsilar_inflammation, no_airway_obstruction. no_lymphadenopathy NECK: supple, no_neck_tenderness, (-)thyromegaly. BACK: no_back_tenderness. CHEST_WALL: no_chest_tenderness. LUNGS: no_wheezing, no_rales, no_rhonchi, (-)accessory muscle use, good air exchange bilateral. HEART: normal_rate, normal_rhythm, normal_S1, normal_S2, (-)S3, (-)S4, no_murmur, no_rub. ABDOMEN: normal_BS, soft, no_abd_tenderness, (-)guarding, (-)rebound, no_organomegaly, no_abd_masses. EXTREMITIES: strength 5/5 in all_extremities, good pulses in all_extremities, no_swelling\\tenderness in the extremities, no_edema. SKIN: warm, dry, good_color, no_rash. MENTAL_STATUS: speech_clear, oriented_X_3, normal_affect, responds_appropriately to questions. NEURO: Neg Motor or Sensory Deficits on exam, CN 2-12 intact, DTR 2+ symmetric x 4, No cerbellar signs PSYCH: She denies suicidal homicidal thoughts denies visual auditory hallucinations. Course - Re-evaluation Re-evalutation: 05/18/19 20:07 44-year-old female arrives in the ER with chest discomfort shortness of breath she states she is been under a lot of situational stress lately. She had a panic attack earlier in the day and then went to work and then had another episode where she had perioral numbness and tingling on both sides of her face numbness and tingling of both upper and lower extremities equally. States he has some chest pain shortness of breath. States this is a little different than her normal panic attacks was much more severe. Work appears been very reassuring 05/18/19 20:58 Serial troponins are negative. Recent has come down is doing well. We spoke at length about her anxiety. My suspicion is low for ACS. - Vital Signs Vital signs: Temp Pulse Resp BP Pulse Ox 98.1 F 82 12 135/79 H 99 05/18/19 15:54 05/18/19 15:54 05/18/19 20:02 05/18/19 20:02 05/18/19 20:02 - Laboratory Result Diagrams: 05/18/19 17:26 05/18/19 17:26 Laboratory results interpreted by me: 05/18/19 05/18/19 17:26 17:26 RBC 3.70 L Hct 35.9 L RDW 15.4 H Creatine Kinase 199 H - Diagnostic Test Radiology reviewed: Reports reviewed Radiology results interpreted by me: 05/18/19 20:08 Chest X-Ray 05/18/19 15:59 IMPRESSION: NO ACUTE RADIOGRAPHIC FINDING IN THE CHEST. - EKG Interpretation by Me EKG shows normal: Sinus rhythm Rate: Normal Rhythm: NSR Discharge - Discharge Clinical Impression: Panic attack Condition: Good Disposition: HOME, SELF-CARE Instructions: Panic Attack ([facility]) Prescriptions: Buspirone HCl [Buspar 10 mg Tablet] 10 mg PO TID PRN #15 tab PRN Reason: Referrals: PETE MONTEZ FNP [Primary Care Provider] - Follow up as needed
[2019-05-18 21:41] VITALS: BP 139/68
--- NOTE | 2019-05-19 09:33 | EKG REPORT ---
SEVERITY:- NORMAL ECG - SINUS RHYTHM : Confirmed by: Bailey Shaw MD 19-May-2019 09:32:55
== END 2019-05-18 22:00 | disposition home or self-care (01) ==
LOC: ER 15:50
DX: F41.0 Panic disorder [episodic paroxysmal anxiety] (principal); F41.9 Anxiety disorder, unspecified; R07.9 Chest pain, unspecified; R20.0 Anesthesia of skin; R20.2 Paresthesia of skin; F17.200 Nicotine dependence, unspecified, uncomplicated; I10 Essential (primary) hypertension; R06.02 Shortness of breath; Z88.5 Allergy status to narcotic agent
CPT/HCPCS: 36415; 71045; 80053; 82550; 82553; 84484; 85025; 93005; 93010; 99285

== ENCOUNTER 2019-10-05 12:08 | Emergency (ER) | payer OTHER ==
[2019-10-05] MEDS ORDERED: KETOROLAC TROMETHAMINE INJ/PF 30 MG/1 ML SDV IV ONE (12:16)
[2019-10-05] MEDS ORDERED: ONDANSETRON HCL INJ/PF 4 MG/2 ML SDV IV ONE (12:16)
--- NOTE | 2019-10-05 12:18 | ER Document Report ---
ED Medical Screen (RME) - General Chief Complaint: Flank Pain Stated Complaint: FLANK PAIN Time Seen by Provider: 10/05/19 12:14 Primary Care Provider: PETE MONTEZ FNP [Primary Care Provider] - Follow up as needed Information source: Patient Notes: Patient presents complaining of left flank pain off and on over the past 3 days. Patient states she has had some chills with nausea and vomiting. Patient reports some dysuria and frequency symptoms as well. I have greeted and performed a rapid initial assessment of this patient. A comprehensive ED assessment and evaluation of the patient, analysis of test results and completion of the medical decision making process will be conducted by additional ED providers. TRAVEL OUTSIDE OF THE [place] IN LAST 30 DAYS: No - Related Data Allergies/Adverse Reactions: hydrocodone [From Vicodin] Allergy (Verified 10/05/19 12:15) Past Medical History - Social History Chew tobacco use (# tins/day): No Frequency of alcohol use: None Drug Abuse: None - Past Medical History Cardiac Medical History: Reports: Hx Hypercholesterolemia, Hx Hypertension Pulmonary Medical History: Reports: Hx Pneumonia Neurological Medical History: Reports: Hx Migraine Renal/ Medical History: Reports: Hx Ectopic , Hx Kidney Stones. Denies: Hx Peritoneal Dialysis Musculoskeltal Medical History: Reports Hx Arthritis, Reports Hx Musculoskeletal Deformity, Reports Hx Musculoskeletal Trauma Psychiatric Medical History: Reports: Hx Anxiety, Hx Attention Deficit Hyperactivity Disorder, Hx Bipolar Disorder, Hx Depression Past Surgical History: Reports: Hx Appendectomy, Hx Genitourinary Surgery - right ureteral stent - Immunizations Immunizations up to date: No Hx Diphtheria, Pertussis, Tetanus Vaccination: No - unk Physical Exam - Vital signs Vitals: Temp Pulse Resp BP Pulse Ox 98.2 F 89 16 123/81 98 10/05/19 12:13 10/05/19 12:13 10/05/19 12:13 10/05/19 12:13 10/05/19 12:13 - Back Back: CVA tenderness - Left Course - Vital Signs Vital signs: Temp Pulse Resp BP Pulse Ox 98.2 F 89 16 123/81 98 10/05/19 12:13 10/05/19 12:13 10/05/19 12:13 10/05/19 12:13 10/05/19 12:13 Doctor's Discharge - Discharge Referrals: MONTEZ,PETE, [employer] [Primary Care Provider] - Follow up as needed
--- NOTE | 2019-10-05 12:39 | ER Document Report ---
ED GI/ - General Chief Complaint: Flank Pain Stated Complaint: FLANK PAIN Time Seen by Provider: 10/05/19 12:14 Primary Care Provider: PETE MONTEZ FNP [Primary Care Provider] - Follow up as needed Notes: 44-year-old female with history of nephrolithiasis presents to the emergency department with chief complaint of left flank pain and left lower quadrant abdominal pain since 4:00 this morning. Patient states that 2 days ago she started developing suprapubic pain consistent with previous UTIs and put off see [facility] [facility] until this morning when the pain got acutely worse. Patient states that she has chills, complains of nausea and vomiting this morning, complains of dysuria, complains of urinary frequency, complains of urinary urgency. Did not denies shortness of breath or chest pain, denies diarrhea or constipation, denies hematuria. Patient denies any abnormal vaginal discharge. Patient did not take anything for this pain prior to arrival. TRAVEL OUTSIDE OF THE [place] IN LAST 30 DAYS: No - Related Data Allergies/Adverse Reactions: hydrocodone [From Vicodin] Allergy (Verified 10/05/19 12:15) Past Medical History - General Information source: Patient - Social History Smoking Status: Current Every Day Smoker Chew tobacco use (# tins/day): No Frequency of alcohol use: None Drug Abuse: None Family History: Reviewed & Not Pertinent, Arthritis, DM, Malignancy Patient has suicidal ideation: No Patient has homicidal ideation: No - Past Medical History Cardiac Medical History: Reports: Hx Hypercholesterolemia, Hx Hypertension Pulmonary Medical History: Reports: Hx Pneumonia Neurological Medical History: Reports: Hx Migraine Renal/ Medical History: Reports: Hx Ectopic , Hx Kidney Stones. Denies: Hx Peritoneal Dialysis Musculoskeletal Medical History: Reports Hx Arthritis, Reports Hx Musculoskeletal Deformity, Reports Hx Musculoskeletal Trauma Psychiatric Medical History: Reports: Hx Anxiety, Hx Attention Deficit Hyperactivity Disorder, Hx Bipolar Disorder, Hx Depression Past Surgical History: Reports: Hx Appendectomy, Hx Genitourinary Surgery - right ureteral stent - Immunizations Immunizations up to date: No Hx Diphtheria, Pertussis, Tetanus Vaccination: No - unk Review of Systems - Review of Systems Constitutional: See HPI EENT: No symptoms reported Cardiovascular: See HPI Respiratory: See HPI Gastrointestinal: See HPI Genitourinary: See HPI Female Genitourinary: See HPI Musculoskeletal: No symptoms reported Skin: No symptoms reported Hematologic/Lymphatic: No symptoms reported Neurological/Psychological: No symptoms reported Physical Exam - Vital signs Vitals: Temp Pulse Resp BP Pulse Ox 98.2 F 89 16 123/81 98 10/05/19 12:13 10/05/19 12:13 10/05/19 12:13 10/05/19 12:13 10/05/19 12:13 - Notes Notes: PHYSICAL EXAMINATION: Reviewed vital signs and charting by RN GENERAL: Alert, interacts well. No acute distress. HEAD: Normocephalic, atraumatic. EYES: Pupils equal and round. Extraocular movements intact. ENT: Oral mucosa moist, tongue midline. NECK: Full range of motion. Trachea midline. LUNGS: Clear to auscultation bilaterally, no wheezes, rales, or rhonchi. No respiratory distress. HEART: Regular rate and rhythm. No murmur ABDOMEN: soft, left lower quadrant tenderness to palpation. No distention. Bowel sounds present BACK: Left CVAT EXTREMITIES: Moves all 4 extremities spontaneously. No edema, No cyanosis. PSYCH: Normal affect, normal mood. SKIN: Warm, dry, normal turgor. No rashes or lesions noted. Course - Re-evaluation Re-evalutation: 10/05/19 12:38 Patient nontoxic-appearing in mild distress. Work-up ordered in triage and still pending. 10/05/19 15:10 The urine was consistent with a urinary tract infection. Patient was complaining of significant pain so she received morphine 4 mg IV once. A renal ultrasound was ordered in triage and did show ectasia of the left collecting duct with recommendation to obtain a CT abdomen pelvis with out. Patient is still having flank pain so CT abdomen/pelvis without contrast has been ordered. 10/05/19 16:34 CT abdomen pelvis without contrast did not show any acute findings. I explained this to patient and plan is to treat her for pyelonephritis. Patient has been given a prescription for Keflex 500 mg every 12 hours for 7 days and strict return precautions. She is stable for discharge. - Vital Signs Vital signs: Temp Pulse Resp BP Pulse Ox 99.0 F 68 16 112/73 98 10/05/19 15:39 10/05/19 15:39 10/05/19 15:39 10/05/19 15:39 10/05/19 15:39 - Laboratory Result Diagrams: 10/05/19 12:29 10/05/19 12:29 Laboratory results interpreted by me: 10/05/19 10/05/19 12:29 12:29 WBC 12.3 H RBC 3.69 L Hgb 11.4 L Hct 34.2 L RDW 15.4 H Seg Neuts % (Manual) 88 H Lymphocytes % (Manual) 6 L Abs Neuts (Manual) 10.8 H Urine Protein 100 H Urine Blood MODERATE H Urine Nitrite (Reflex) POSITIVE H Leukocyte Esterase Rfl LARGE H Discharge - Discharge Clinical Impression: Pyelonephritis Condition: Good Disposition: HOME, SELF-CARE Instructions: Pyelonephritis ([facility]) Additional Instructions: You have been diagnosed with a condition called pyelonephritis which is an infection involving your kidneys and bladder. You have been given a dose of antibiotics here in the emergency department to help begin to treat this infection. Your also being sent home on antibiotics. Please start taking these later on today when you fill the prescription. Complete the course even if you feel better. Please return if you have persistent vomiting, pass out, have worsening pain, become unable to tolerate fluids, or have any other symptoms that are concerning to you. Please follow-up with your primary care physician in the next 24-48 hours. Referrals: PETE MONTEZ FNP [Primary Care Provider] - Follow up as needed
[2019-10-05 12:59] LABS: HEMATOCRIT 34.2 % (36.0-47.0); HEMOGLOBIN 11.4 g/dL (12.0-15.5); MEAN CORPUSCULAR HEMOGLOBIN 30.8 pg (27.0-33.4); MEAN CORPUSCULAR HGB CONC 33.3 g/dL (32.0-36.0); MEAN CORPUSCULAR VOLUME 93 fl (80-97); PLATELET COUNT 184 10^3/uL (150-450); RED BLOOD COUNT 3.69 10^6/uL (3.72-5.28); RED CELL DISTRIBUTION WIDTH 15.4 % (11.5-14.0); WHITE BLOOD COUNT 12.3 10^3/uL (4.0-10.5)
[2019-10-05 13:12] LABS: AMORPHOUS SEDIMENT,URINE TRACE /HPF; APPEARANCE,URINE CLOUDY; BILIRUBIN,URINE NEGATIVE (NEGATIVE); COLOR,URINE YELLOW; GLUCOSE, URINE NEGATIVE (NEGATIVE); KETONES,URINE NEGATIVE (NEGATIVE); PROTEIN,URINE 100 mg/dL (NEGATIVE); URINE SPECIFIC GRAVITY 1.008; UROBILINOGEN,URINE NEGATIVE mg/dL (<2.0)
[2019-10-05 13:15] LABS: ANION GAP 13 (5-19); BLOOD UREA NITROGEN 10 mg/dL (7-20); CALCIUM 9.8 mg/dL (8.4-10.2); CARBON DIOXIDE 24 mmol/L (22-30); CHLORIDE 103 mmol/L (98-107); GLUCOSE 110 mg/dL (75-110); POTASSIUM 4.2 mmol/L (3.6-5.0)
[2019-10-05 13:20] LABS: ABSOLUTE LYMPHOCYTES# (MANUAL) 0.7 10^3/uL (0.5-4.7); ABSOLUTE MONOCYTES # (MANUAL) 0.7 10^3/uL (0.1-1.4); BASOPHILS % (MANUAL) 0 % (0-2); EOSINOPHILS % (MANUAL) 0 % (0-6); LYMPHOCYTES % (MANUAL) 6 % (13-45); MONOCYTES % (MANUAL) 6 % (3-13); SEGMENTED NEUTROPHILS % (MAN) 88 % (42-78); TOTAL CELLS COUNTED 100
[2019-10-05 13:22] LABS: ANISOCYTOSIS SLIGHT; PLATELET COMMENT ADEQUATE
[2019-10-05] MEDS ORDERED: CEFTRIAXONE 1 GM/D5W RTU 1 GM/50 ML RTUPB IV ONE (13:29)
[2019-10-05] MEDS ORDERED: MORPHINE SULFATE 10 MG/ML INJ IV ONE (13:33)
--- NOTE | 2019-10-05 14:00 | RADIOLOGY REPORT (SQ) ---
EXAM DESCRIPTION: U/S RETROPERITON (RENAL/AORTA) COMPLETED DATE/TIME: 10/05/2019 1:32 pm REASON FOR STUDY: L flank pain, hx stones COMPARISON: None. TECHNIQUE: Dynamic and static grayscale images acquired of the kidneys and bladder and recorded on P ACS. Additional selected color Doppler and spectral images recorded. LIMITATIONS: None. FINDINGS: RIGHT KIDNEY: The right kidney measures 10.6 x 3.4 x 3.6 cm demonstrating normal echogenic ity. Normal Doppler flow. No renal calculus seen. LEFT KIDNEY: The left kidney measures 13.5 x 5 x 5 cm. There is mild ectasia of the left upper bharathi ecting system. The left ureter is prominent measuring approximate 0.5 cm. Follow-up with CT stonech aser study could be obtained . Normal Doppler flow. No renal calculus seen. BLADDER: Bilateral ureteral jets identified. IMPRESSION: There is mild ectasia of the left upper collecting system and left ureter. Follow-up wi CT abdomen pelvis without contrast could be uses further evaluation. TECHNICAL DOCUMENTATION: JOB ID: [id number] [employer]- All Rights Reserved Reading location - IP/workstation name: [email or web address]
[2019-10-05 15:40] VITALS: BP 112/73
--- NOTE | 2019-10-05 15:41 | RADIOLOGY REPORT (SQ) ---
EXAM DESCRIPTION: CT ABD/PELVIS NO ORAL OR IV COMPLETED DATE/TIME: 10/05/2019 3:24 pm REASON FOR STUDY: concern for kidney stone COMPARISON: 2013 to February 2019 TECHNIQUE: CT scan of the abdomen and pelvis performed without intravenous or oral contrast. Images reviewed with lung, soft tissue, and bone windows. Reconstructed coronal and sagittal MPR images revi ewed. All images stored on PACS. All CT scanners at this facility use dose modulation, iterative reconstruction, and/or weight based d osing when appropriate to reduce radiation dose to as low as reasonably achievable (ALARA). [facility]: Dose Right [facility]: CareDose [facility]: Dose Right [facility]: Teradose 4D [facility]: Smart Probiodrug RADIATION DOSE: CT Rad equipment meets quality standard of care and radiation dose reduction techniq ues were employed. CTDIvol: 9.8 mGy. DLP: 493 mGy-cm.mGy. LIMITATIONS: None. FINDINGS: LOWER CHEST: No significant findings. No nodules or infiltrates. NON-CONTRASTED LIVER, SPLEEN, ADRENALS: No masses. PANCREAS: No masses. No peripancreatic inflammatory changes. GALLBLADDER: No identified stones by CT criteria. No inflammatory changes to suggest cholecystitis. RIGHT KIDNEY AND URETER: Stable appearance. Minimal peripheral calculi. No hydronephrosis. Atrop hic kidney with scarring. LEFT KIDNEY AND URETER: No suspicious masses. Assessment limited by lack of IV contrast. Peripheral non obstructive calculi. No hydronephrosis. There is perinephric edema of finding that is been se en on previous studies. AORTA AND RETROPERITONEUM: No aneurysm. No retroperitoneal masses or adenopathy. BOWEL AND PERITONEAL CAVITY: No obvious masses or inflammatory changes. No free fluid. APPENDIX: Surgically absent. PELVIS, BLADDER, AND ABDOMINAL WALL:No abnormal masses. No free fluid. Bladder normal. BONES: No significant findings. OTHER: No other significant finding. IMPRESSION: Chronic atrophy and scarring of the right kidney. Chronic hypertrophy left kidney. There is some elin renal fat stranding on the left a finding that i s been seen previously. No obstructive changes. COMMENT: Quality ID # [id number]: Final reports with documentation of one or more dose reduction techniques (e.g., Automated exposure control, adjustment of the mA and/or kV according to patient size, use of iterative reconstruction technique) TECHNICAL DOCUMENTATION: JOB ID: [id number]- All Rights Reserved Reading location - IP/workstation name: [email or web address]
[2019-10-05] MEDS ORDERED: ONDANSETRON ODT 4 MG TAB (6 TAB/ER DISP) PO PRN (16:32)
== END 2019-10-05 16:52 | disposition home or self-care (01) ==
LOC: ER 12:08
DX: N12 Tubulo-interstitial nephritis, not specified as acute or chronic (principal); R10.9 Unspecified abdominal pain; E78.00 Pure hypercholesterolemia, unspecified; I10 Essential (primary) hypertension; F17.200 Nicotine dependence, unspecified, uncomplicated; Z88.6 Allergy status to analgesic agent
CPT/HCPCS: 36415; 87040; 87086; 85025; 87077; 87088; 80048; 81001; 87186; 76770; 74176; J1885; J2270; J2405; J0696; 96365; 96375; 99284

== ENCOUNTER 2019-10-06 09:11 | Observation (INO) | payer OTHER ==
[2019-10-06] MEDS ORDERED: CEFTRIAXONE 1 GM/D5W RTU 1 GM/50 ML RTUPB IV ONE (09:53)
[2019-10-06] MEDS ORDERED: ONDANSETRON HCL INJ/PF 4 MG/2 ML SDV IV ONE (09:54)
[2019-10-06] MEDS ORDERED: NORMAL SALINE 1000 ML 1,000 ML IV ONE (09:55)
--- NOTE | 2019-10-06 10:01 | ER Document Report ---
ED General - General Chief Complaint: Abnormal Lab Results Stated Complaint: ABNORMAL LABS Time Seen by Provider: 10/06/19 09:39 Primary Care Provider: PETE MONTEZ FNP [Primary Care Provider] - Follow up as needed TRAVEL OUTSIDE OF THE [place] IN LAST 30 DAYS: No - HPI Notes: 44-year-old white female seen in the emergency department this time after she was called back because of a positive blood culture from yesterday. Patient was seen here by mid-level provider yesterday with left flank pain and fever and was found to have an acute pyelonephritis. White count was 12.7 at that time and she had extensive pyuria and left flank tenderness. She had a CT abdomen/pelvis showed some edema and stranding of the left kidney with some atrophy of the right kidney. No stone present. Patient states she has had intermittent chills since discharge. Continued malaise. Mild nausea without vomiting. She is taking some oral fluids. - Related Data Allergies/Adverse Reactions: hydrocodone [From Vicodin] Allergy (Verified 10/05/19 12:15) Home Medications: Keflex, Oxycodone, Zofran Past Medical History - General Information source: Patient - Social History Smoking Status: Current Every Day Smoker Chew tobacco use (# tins/day): No Frequency of alcohol use: None Drug Abuse: None Family History: Reviewed & Not Pertinent, Arthritis, DM, Malignancy Patient has suicidal ideation: No Patient has homicidal ideation: No - Past Medical History Cardiac Medical History: Reports: Hx Hypercholesterolemia, Hx Hypertension Pulmonary Medical History: Reports: Hx Pneumonia Neurological Medical History: Reports: Hx Migraine Renal/ Medical History: Reports: Hx Ectopic , Hx Kidney Stones. Denies: Hx Peritoneal Dialysis Musculoskeletal Medical History: Reports Hx Arthritis, Reports Hx Musculoskeletal Deformity, Reports Hx Musculoskeletal Trauma Psychiatric Medical History: Reports: Hx Anxiety, Hx Attention Deficit Hyperactivity Disorder, Hx Bipolar Disorder, Hx Depression Past Surgical History: Reports: Hx Appendectomy, Hx Genitourinary Surgery - rig ht ureteral stent - Immunizations Immunizations up to date: No Hx Diphtheria, Pertussis, Tetanus Vaccination: No - unk Review of Systems - Review of Systems Notes: Constitutional: As per HPI. HENT: Negative for sore throat. Eyes: Negative for visual changes. Cardiovascular: Negative for chest pain. Respiratory: Negative for shortness of breath. Gastrointestinal: As per HPI. Ongoing intermittent left flank pain. Took 1 Percocet 5 tablet this morning. Genitourinary: Urinary frequency. Musculoskeletal: Left flank pain present. Skin: Negative for rash. Neurological: Negative for headaches, weakness or numbness. 10 point ROS negative except as marked above and in HPI. Physical Exam - Vital signs Vitals: Temp Pulse Resp BP Pulse Ox 98.0 F 88 16 128/84 H 98 10/06/19 09:17 10/06/19 09:17 10/06/19 09:17 10/06/19 09:17 10/06/19 09:17 GENERAL: Well-developed well-nourished appearing uncomfortable but nontoxic. SKIN: Good turgor no rashes. HEAD: Normocephalic atraumatic. EYES: PERRLA. Conjunctivae and sclerae clear. EARS: CANALS AND TMS CLEAR. NOSE: CLEAR. MOUTH: Moist mucosa. Good dentition. No stridor or edema. No drooling. NECK: Supple. No masses or thyromegaly. No adenopathy. Carotids 2+ without bruits. No JVD. BACK: Symmetrical left flank tenderness to percussion. CHEST: Respirations unlabored. Breath sounds clear and symmetrical. HEART: Regular rhythm. No murmur gallop or rub. ABDOMEN: Mild to moderate tenderness left upper quadrant on deep palpation. Soft without masses, organomegaly or rebound. Bowel sounds normally active. No bruits. GENITALIA: Deferred. EXTREMITIES: No edema. No calf tenderness. Cap refill less than 1.5 seconds. Dorsalis pedis and posterior tibial pulses 3+ and symmetrical. NEUROLOGICAL: GCS 15. Alert and oriented x3. Normal gait. Fluent speech. Cranial nerves II through XII intact. Sensorimotor and cerebellar normal. Normal tone. PSYCHIATRIC: Anxious Course - Re-evaluation Re-evalutation: 10/06/19 10:02 I am going to repeat some labs including a CBC and comprehensive metabolic profile as well as a lactate level. Patient will receive additional IV fluids and IV Rocephin. Anticipate admission following review of current lab studies. 10/06/19 11:35 Normal Lactate, Normal WBC and no fever. To be admitted Dr. Mason. - Vital Signs Vital signs: Temp Pulse Resp BP Pulse Ox 98.0 F 88 16 128/84 H 98 10/06/19 09:17 10/06/19 09:17 10/06/19 09:17 10/06/19 09:17 10/06/19 09:17 - Laboratory Result Diagrams: 10/06/19 10:20 10/06/19 10:20 Laboratory results interpreted by me: 10/06/19 10/06/19 10/06/19 10:20 10:20 10:20 RBC 3.47 L Hgb 10.7 L Hct 32.2 L RDW 15.6 H Lymph % (Auto) 12.0 L Seg Neutrophils % 79.2 H VBG pH 7.43 H BUN 6 L Glucose 113 H Discharge - Discharge Clinical Impression: Pyelonephritis Sepsis Qualifiers: Sepsis type: sepsis due to unspecified organism Sepsis acute organ dysfunction status: without acute organ dysfunction Qualified Code(s): A41.9 - Sepsis, unspecified organism Condition: Stable Disposition: ADMITTED INPATIENT Admitting Provider: Onime (Hospitalist) Unit Admitted: Medical Floor Referrals: PETE MONTZE FNP [Primary Care Provider] - Follow up as needed
[2019-10-06] MEDS ORDERED: OXYCODONE-ACETAMINOPHEN 5-325 MG TABLET PO ONE (10:51)
[2019-10-06 10:54] LABS: VENOUS BLOOD HCO3 25.2 mmol/L (20-32); VENOUS BLOOD PCO2 38.8 mmHg (35-63); VENOUS BLOOD PH 7.43 (7.30-7.42)
[2019-10-06 10:57] LABS: ABSOLUTE LYMPHOCYTES (AUTO) 0.8 10^3/uL (0.5-4.7); ABSOLUTE MONOCYTES (AUTO) 0.6 10^3/uL (0.1-1.4); ABSOLUTE NEUT (AUTO) 5.4 10^3/uL (1.7-8.2); BASOPHILS % (AUTO) 0.1 % (0-2); EOSINOPHILS % (AUTO) 0.3 % (0-6); HEMATOCRIT 32.2 % (36.0-47.0); HEMOGLOBIN 10.7 g/dL (12.0-15.5); MEAN CORPUSCULAR HGB CONC 33.4 g/dL (32.0-36.0); MEAN CORPUSCULAR VOLUME 93 fl (80-97); MONOCYTES % (AUTO) 8.4 % (3-13); PLATELET COUNT 160 10^3/uL (150-450); RED BLOOD COUNT 3.47 10^6/uL (3.72-5.28); RED CELL DISTRIBUTION WIDTH 15.6 % (11.5-14.0); SEGMENTED NEUTROPHILS % (AUTO) 79.2 % (42-78); TOTAL CELLS COUNTED % (AUTO) 100 %; WHITE BLOOD COUNT 6.8 10^3/uL (4.0-10.5)
[2019-10-06 11:13] LABS: ALBUMIN 3.7 g/dL (3.5-5.0); ALKALINE PHOSPHATASE 42 U/L (38-126); ANION GAP 9 (5-19); ASPARTATE AMINO TRANSFERASE 16 U/L (14-36); BILIRUBIN,DIRECT 0.1 mg/dL (0.0-0.4); BILIRUBIN,TOTAL 0.5 mg/dL (0.2-1.3); BLOOD UREA NITROGEN 6 mg/dL (7-20); CALCIUM 8.9 mg/dL (8.4-10.2); CARBON DIOXIDE 26 mmol/L (22-30); CHLORIDE 103 mmol/L (98-107); GLUCOSE 113 mg/dL (75-110); POTASSIUM 3.8 mmol/L (3.6-5.0); TOTAL PROTEIN 6.7 g/dL (6.3-8.2)
--- NOTE | 2019-10-06 13:21 | PDOC H&P ---
History of Present Illness Admission Date/PCP: JULISA OWEN Patient complains of: Suprapubic pain, notified of bacteremia lab work History of Present Illness: GERALDINE DUGAN is a 44 year old female with a history of nephrolithiasis, vesicoureteral reflux, pyelonephritis, bipolar disorder who presents to the hospital after being notified by the micro lab the patient's blood cultures were positive for gram-negative rods. Of note, patient has been experiencing suprapubic pain along with left flank pain and polyuria for the past week. Yesterday, she started having nausea and several episodes of vomiting. She also noted chills for most of the day prompting her to come to the emergency department. In the ER yesterday, urine sample was positive and CT scan showed perirenal fat stranding in the left side. She was subsequently diagnosed with pyelonephritis. Blood cultures were obtained. Granix and discharged home on Keflex. She was given a dose of antibiotics. Blood cultures are now positive for gram-negative rods prompting admission for bacteremia. Patient currently feels suprapubic pain still but currently denies any fever or chills. Past Medical History Cardiac Medical History: Reports: Hyperlipidema, Hypertension Pulmonary Medical History: Reports: Pneumonia Neurological Medical History: Reports: Migraine Renal/ Medical History: Reports: Other - Pyelonephritis, vesicoureteral reflux Musculoskeltal Medical History: Reports: Arthritis Psychiatric Medical History: Reports: Bipolar Disorder Hematology: Reports: Anemia Past Surgical History Past Surgical History: Reports: Appendectomy, Other - Ureteral stent placement Social History Information Source: Patient Smoking Status: Current Every Day Smoker Cigarettes Packs Per Day: 35 Electronic Cigarette use?: No Frequency of Alcohol Use: Occasional Hx Recreational Drug Use: No Drugs: None - Advance Directive Resuscitation Status: Full Code Family History Family History: Reviewed & Not Pertinent, Arthritis, DM, Malignancy Parental Family History Reviewed: Yes Children Family History Reviewed: NA Sibling(s) Family History Reviewed.: Yes Medication/Allergy Home Medications: Ibuprofen [Motrin 800 mg Tablet] 800 mg PO Q8HP PRN #30 tablet 04/21/18 Meclizine HCl [Verticalm] 25 mg PO QIDP PRN #30 tablet 04/21/18 Butalb/Acetaminophen/Caffeine [Fioricet (50-325-40 mg) Tablet] 1 - 2 tab PO TID PRN #20 tab 12/24/18 Lisinopril [Zestril] 2.5 mg PO DAILY #30 tablet 12/24/18 Doxycycline Hyclate 100 mg PO BID #20 capsule 02/27/19 Metronidazole [Flagyl 500 mg Tablet] 500 mg PO BID #14 tablet 02/27/19 Phenazopyridine HCl [Pyridium 100 Mg Tablet] 100 mg PO BID #10 tablet 02/27/19 Promethazine HCl [Phenergan 25 mg Tablet] 25 mg PO Q6H PRN #15 tablet 02/27/19 Buspirone HCl [Buspar 10 mg Tablet] 10 mg PO TID PRN #15 tab 05/18/19 Cephalexin Monohydrate [Keflex 500 mg Capsule] 500 mg PO Q12H 7 Days #14 capsule 10/05/19 Oxycodone HCl/Acetaminophen [Percocet 5-325 mg Tablet] 1 tab PO Q4H PRN #6 tablet 10/05/19 Allergies/Adverse Reactions: hydrocodone [From Vicodin] Allergy (Verified 10/05/19 12:15) Review of Systems Constitutional: PRESENT: as per HPI, chills. ABSENT: fever(s) Cardiovascular: ABSENT: chest pain, edema Respiratory: ABSENT: dyspnea Gastrointestinal: ABSENT: diarrhea, nausea, vomiting Genitourinary: PRESENT: dysuria Integumentary: ABSENT: diaphoresis Neurological: ABSENT: confusion Psychiatric: ABSENT: hallucinations Endocrine: PRESENT: polyuria Physical Exam Vital Signs: Temp Pulse Resp BP Pulse Ox 98.0 F 88 16 128/84 H 98 10/06/19 09:17 10/06/19 09:17 10/06/19 09:17 10/06/19 09:17 10/06/19 09:17 Intake & Output 10/05/19 10/06/19 10/07/19 06:59 06:59 06:59 Intake Total 1050 Balance 1050 Weight 76.1 kg General appearance: PRESENT: no acute distress Head exam: PRESENT: normocephalic Eye exam: PRESENT: EOMI Neck exam: ABSENT: JVD Respiratory exam: PRESENT: clear to auscultation raulito, symmetrical, unlabored. A BSENT: tachypnea, wheezes Cardiovascular exam: PRESENT: +S1, +S2. ABSENT: diastolic murmur, systolic murmur, tachycardia GI/Abdominal exam: PRESENT: normal bowel sounds, soft, tenderness - Suprapubic region. Left CVA tenderness. ABSENT: guarding, rebound, rigid Rectal exam: PRESENT: deferred Musculoskeletal exam: PRESENT: ambulatory Neurological exam: PRESENT: alert, awake, oriented to person, oriented to place, oriented to time, oriented to situation Results Laboratory Results: 10/06/19 10:20 10/06/19 10:20 10/06/19 10/06/19 10/06/19 10:20 10:20 10:20 WBC 6.8 RBC 3.47 L Hgb 10.7 L Hct 32.2 L MCV 93 MCH 31.0 MCHC 33.4 RDW 15.6 H Plt Count 160 Seg Neutrophils % 79.2 H VBG pH VBG pCO2 VBG HCO3 VBG Base Excess Sodium 137.5 Potassium 3.8 Chloride 103 Carbon Dioxide 26 Anion Gap 9 BUN 6 L Creatinine 0.63 Est GFR ( Amer) > 60 Glucose 113 H Lactic Acid 1.1 Calcium 8.9 Total Bilirubin 0.5 AST 16 Alkaline Phosphatase 42 Total Protein 6.7 Albumin 3.7 10/06/19 10:20 WBC RBC Hgb Hct MCV MCH MCHC RDW Plt Count Seg Neutrophils % VBG pH 7.43 H VBG pCO2 38.8 VBG HCO3 25.2 VBG Base Excess 1.0 Sodium Potassium Chloride Carbon Dioxide Anion Gap BUN Creatinine Est GFR ( Amer) Glucose Lactic Acid Calcium Total Bilirubin AST Alkaline Phosphatase Total Protein Albumin Assessment and Plan - Diagnosis (1) Gram-negative bacteremia Is this a current diagnosis for this admission?: Yes Plan: Likely secondary to pyonephritis We will repeat blood cultures now that patient has received IV antibiotics yesterday and today. Continue with ceftriaxone. Patient has history of E. coli bacteremia during pyelonephritis sensitive to ceftriaxone (2) Acute pyelonephritis Is this a current diagnosis for this admission?: Yes Plan: Noted on urinalysis yesterday Continue with ceftriaxone for now we will follow-up cultures sensitivity (3) Normocytic anemia Is this a current diagnosis for this admission?: Yes Plan: Currently hemoglobin below her usual baseline. No evidence of bleeding. Check iron studies, B12, folic acid and TSH - Time Time Spent with patient: 35 or more minutes Smoking Cessation Education: 3 to 10 minutes Medications reviewed and adjusted accordingly: Yes
[2019-10-06] MEDS: KETOROLAC TROMETHAMINE INJ/PF 30 MG/1 ML SDV IV PRN (21:44)
[2019-10-07 05:22] LABS: ABSOLUTE EOSINOPHILS # (AUTO) 0.1 10^3/uL (0.0-0.6); ABSOLUTE LYMPHOCYTES (AUTO) 1.6 10^3/uL (0.5-4.7); ABSOLUTE MONOCYTES (AUTO) 0.7 10^3/uL (0.1-1.4); ABSOLUTE NEUT (AUTO) 3.5 10^3/uL (1.7-8.2); ABSOLUTE RETICS # 0.058 10^6/uL (0.028-0.122); BASOPHILS % (AUTO) 0.4 % (0-2); EOSINOPHILS % (AUTO) 1.1 % (0-6); HEMATOCRIT 29.9 % (36.0-47.0); MEAN CORPUSCULAR HEMOGLOBIN 31.2 pg (27.0-33.4); MEAN CORPUSCULAR HGB CONC 33.5 g/dL (32.0-36.0); MEAN CORPUSCULAR VOLUME 93 fl (80-97); PLATELET COUNT 152 10^3/uL (150-450); RED BLOOD COUNT 3.21 10^6/uL (3.72-5.28); RED CELL DISTRIBUTION WIDTH 15.5 % (11.5-14.0); RETICULOCYTE COUNT (AUTO) 1.79 % (0.66-2.85); SEGMENTED NEUTROPHILS % (AUTO) 59.5 % (42-78); TOTAL CELLS COUNTED % (AUTO) 100 %; WHITE BLOOD COUNT 5.8 10^3/uL (4.0-10.5)
[2019-10-07 05:44] LABS: IRON(TIBC) 26.5 ug/dL (37-170)
[2019-10-07] MEDS: KETOROLAC TROMETHAMINE INJ/PF 30 MG/1 ML SDV IV PRN (05:53)
[2019-10-07 06:49] LABS: FOLATE 6.65 ng/mL (>2.76)
[2019-10-07] MEDS ORDERED: CEFTRIAXONE 1 GM/D5W RTU 1 GM/50 ML RTUPB IV SCH (10:00)
[2019-10-07 13:33] VITALS: BP 101/55
--- NOTE | 2019-10-07 14:45 | PDOC DISCHARGE SUMMARY ---
Impression - Admit/DC Date/PCP Admission Date/Primary Care Provider: 10/06/19 13:04 JULISA OWEN Discharge Date: 10/07/19 - Discharge Diagnosis (1) Gram-negative bacteremia Is this a current diagnosis for this admission?: Yes (2) Acute pyelonephritis Is this a current diagnosis for this admission?: Yes (3) Normocytic anemia Is this a current diagnosis for this admission?: Yes - Assessment Summary: Patient was admitted with urinary tract symptoms after having found her to be having gram-negative bacteremia. Of note, patient had presented the prior day to the ER and was diagnosed with acute pyelonephritis. Blood cultures obtained at that time began growing gram-negative rods prompting the hospital to contact patient and ask her to return for admission. Gram-negative bacteremia necessitated admission. She was started on ceftriaxone. Repeat blood cultures were obtained. Her initial blood cultures was finalized with the organism being E. coli which was reported sensitive to Levaquin. Patient was then transitioned to Levaquin for treatment of her bacteremia and pyelonephritis and is to follow- up with your primary care doctor. She was asked to discontinue the prior antibiotics given on the previous visit. Also given her anemia, vitamin B12, folic acid and iron studies were obtained which indicated mild iron deficiency. Patient was given verbal instruction to follow-up with primary care regarding this and to take iron supplements. Of note, throughout patient's stay, vital signs have been stable, she has been afebrile without leukocytosis. Symptoms have also improved she is being discharged in stable conditions. - Additional Information Resuscitation Status: Full Code Discharge Diet: As Tolerated Discharge Activity: Activity As Tolerated Referrals: PETE MONTEZ FNP [Primary Care Provider] - Follow up as needed (CLINIC IS CLOSED DUE TO THE hOLIDAY) Prescriptions: Levofloxacin [Levaquin 750 mg Tablet] 750 mg PO DAILY 8 Days #8 tab Ibuprofen [Motrin 400 mg Tablet] 400 mg PO MEALS PRN #15 tablet PRN Reason: Ondansetron HCl [Zofran 4 mg Tablet] 1 tab PO Q6HP PRN #10 tablet PRN Reason: Home Medications: Ibuprofen [Motrin 400 mg Tablet] 400 mg PO MEALS PRN #15 tablet 10/07/19 Levofloxacin [Levaquin 750 mg Tablet] 750 mg PO DAILY 8 Days #8 tab 10/07/19 Ondansetron HCl [Zofran 4 mg Tablet] 1 tab PO Q6HP PRN #10 tablet 10/07/19 History of Present Illiness History of Present Illness: GERALDINE DUGAN is a 44 year old female with a history of nephrolithiasis, vesicoureteral reflux, pyelonephritis, bipolar disorder who presents to the hospital after being notified by the micro lab the patient's blood cultures were positive for gram-negative rods. Of note, patient has been experiencing suprapubic pain along with left flank pain and polyuria for the past week. Yesterday, she started having nausea and several episodes of vomiting. She also noted chills for most of the day prompting her to come to the emergency department. In the ER yesterday, urine sample was positive and CT scan showed perirenal fat stranding in the left side. She was subsequently diagnosed with pyelonephritis. Blood cultures were obtained. Granix and discharged home on Keflex. She was given a dose of antibiotics. Blood cultures are now positive for gram-negative rods prompting admission for bacteremia. Patient currently feels suprapubic pain still but currently denies any fever or chills. Physical Exam Vital Signs: Temp Pulse Resp BP Pulse Ox 97.8 F 67 16 101/55 L 97 10/07/19 13:36 10/07/19 13:36 10/07/19 13:36 10/07/19 13:36 10/07/19 13:36 Intake & Output 10/06/19 10/07/19 10/08/19 06:59 06:59 06:59 Intake Total 1050 286 Balance 1050 286 Weight 76.6 kg General appearance: PRESENT: no acute distress, cooperative Respiratory exam: PRESENT: clear to auscultation raulito, symmetrical, unlabored. ABSENT: tachypnea, wheezes Cardiovascular exam: PRESENT: RRR, +S1, +S2. ABSENT: systolic murmur, tachycardia GI/Abdominal exam: PRESENT: normal bowel sounds, tenderness - Suprapubic region and left CVA. ABSENT: firm, guarding, rebound, rigid Neurological exam: PRESENT: alert, awake, oriented to person, oriented to place, oriented to time, oriented to situation Results Laboratory Results: WBC 5.8 10^3/uL (4.0-10.5) 10/07/19 04:34 RBC 3.21 10^6/uL (3.72-5.28) L 10/07/19 04:34 Hgb 10.0 g/dL (12.0-15.5) L 10/07/19 04:34 Hct 29.9 % (36.0-47.0) L 10/07/19 04:34 MCV 93 fl (80-97) 10/07/19 04:34 MCH 31.2 pg (27.0-33.4) 10/07/19 04:34 MCHC 33.5 g/dL (32.0-36.0) 10/07/19 04:34 RDW 15.5 % (11.5-14.0) H 10/07/19 04:34 Plt Count 152 10^3/uL (150-450) 10/07/19 04:34 Lymph % (Auto) 27.0 % (13-45) 10/07/19 04:34 [place] % (Auto) 12.0 % (3-13) 10/07/19 04:34 Eos % (Auto) 1.1 % (0-6) 10/07/19 04:34 Baso % (Auto) 0.4 % (0-2) 10/07/19 04:34 Reticulocyte # 0.058 10^6/uL (0.028-0.122) 10/07/19 04:34 Absolute Neuts (auto) 3.5 10^3/uL (1.7-8.2) 10/07/19 04:34 Absolute Lymphs (auto) 1.6 10^3/uL (0.5-4.7) 10/07/19 04:34 Absolute Monos (auto) 0.7 10^3/uL (0.1-1.4) 10/07/19 04:34 Absolute Eos (auto) 0.1 10^3/uL (0.0-0.6) 10/07/19 04:34 Absolute Basos (auto) 0.0 10^3/uL (0.0-0.2) 10/07/19 04:34 Seg Neutrophils % 59.5 % (42-78) 10/07/19 04:34 Retic Count (auto) 1.79 % (0.66-2.85) 10/07/19 04:34 VBG pH 7.43 (7.30-7.42) H 10/06/19 10:20 VBG pCO2 38.8 mmHg (35-63) 10/06/19 10:20 VBG HCO3 25.2 mmol/L (20-32) 10/06/19 10:20 VBG Base Excess 1.0 mmol/L 10/06/19 10:20 Sodium 137.5 mmol/L (137-145) 10/06/19 10:20 Potassium 3.8 mmol/L (3.6-5.0) 10/06/19 10:20 Chloride 103 mmol/L (98-107) 10/06/19 10:20 Carbon Dioxide 26 mmol/L (22-30) 10/06/19 10:20 Anion Gap 9 (5-19) 10/06/19 10:20 BUN 6 mg/dL (7-20) L 10/06/19 10:20 Creatinine 0.63 mg/dL (0.52-1.25) 10/06/19 10:20 Est GFR ( Amer) > 60 (>60) 10/06/19 10:20 Est GFR (MDRD) Non-Af > 60 (>60) 10/06/19 10:20 Glucose 113 mg/dL (75-110) H 10/06/19 10:20 Lactic Acid 1.1 mmol/L (0.7-2.1) 10/06/19 10:20 Calcium 8.9 mg/dL (8.4-10.2) 10/06/19 10:20 Iron 26.5 ug/dL (37-170) L 10/07/19 04:34 TIBC 327 ug/dL (250-450) 10/07/19 04:34 % Saturation 8 % 10/07/19 04:34 Ferritin 40.90 ng/mL (6.2-137.0) 10/07/19 04:34 Total Bilirubin 0.5 mg/dL (0.2-1.3) 10/06/19 10:20 Direct Bilirubin 0.1 mg/dL (0.0-0.4) 10/06/19 10:20 Neonat Total Bilirubin Not Reportable 10/06/19 10:20 Neonat Direct Bilirubin Not Reportable 10/06/19 10:20 Neonat Indirect Bili Not Reportable 10/06/19 10:20 AST 16 U/L (14-36) 10/06/19 10:20 ALT 15 U/L (<35) 10/06/19 10:20 Alkaline Phosphatase 42 U/L (38-126) 10/06/19 10:20 Total Protein 6.7 g/dL (6.3-8.2) 10/06/19 10:20 Albumin 3.7 g/dL (3.5-5.0) 10/06/19 10:20 Vitamin B12 323.0 pg/mL (239-931) 10/07/19 04:34 Folate 6.65 ng/mL (>2.76) 10/07/19 04:34 TSH 1.13 uIU/mL (0.47-4.68) 10/07/19 04:34 Stroke Is this a Stroke Patient?: No Acute Heart Failure - Is this a Heart Failure Patient?: No
== END 2019-10-07 14:48 | disposition home or self-care (01) ==
LOC: ER 09:11 → EH 13:04 → INTOOBSV 13:04 → 5 17:32
PROVIDERS: ADMIT Internal Medicine; ATTEND Internal Medicine
DX: N10 Acute pyelonephritis (principal); R78.81 Bacteremia; B96.29 Other Escherichia coli [E. coli] as the cause of diseases classified elsewhere; D50.9 Iron deficiency anemia, unspecified; F17.200 Nicotine dependence, unspecified, uncomplicated; Z96.0 Presence of urogenital implants; Z90.49 Acquired absence of other specified parts of digestive tract; Z87.442 Personal history of urinary calculi
CPT/HCPCS: 99284; 96375; 96365; 36415 ×2; 87040; 82607; 82728; 82746; 83540; 83550; 84443; 85025 ×2; 85045; 80053; 82803; 83605; G0378 ×3; J1885 ×2; J3490 ×2; J2405; J7030; J0696 ×2

== ENCOUNTER 2020-07-30 15:33 | Emergency (ER) | payer OTHER ==
--- NOTE | 2020-07-30 15:53 | ER Document Report ---
ED Medical Screen (RME) - General Chief Complaint: Flank Pain Stated Complaint: FLANK PAIN Time Seen by Provider: 07/30/20 15:50 Primary Care Provider: PETE MONTEZ FNP [Primary Care Provider] - Follow up as needed Mode of Arrival: Ambulatory Information source: Patient Notes: 45-year-old female patient complains of right flank pain with no blood in his urine nausea and vomiting x2 days she has not had any fevers. She states she has had a history of urinary reflux kidney infections and kidney stones. States only past medical history is urinary reflux kidney stones pyelonephritis and plastic surgery on her face. She states she did have to have a ureter implanted due to her urinary reflux and she is also had a nasal fracture. She does smoke 1/2 pack a day drinks weekly and does not use any illicit drugs. Patient does have tenderness to palpation to the right flank but has no pain to the left flank. She states she does have some burning with urination as well. I have greeted and performed a rapid initial assessment of this patient. A comprehensive ED assessment and evaluation of the patient, analysis of test results and completion of medical decision making process will be conducted by an additional ED providers. TRAVEL OUTSIDE OF THE [place] IN LAST 30 DAYS: No - Related Data Allergies/Adverse Reactions: hydrocodone [From Vicodin] Allergy (Verified 10/05/19 12:15) Past Medical History - Past Medical History Cardiac Medical History: Reports: Hx Hypercholesterolemia, Hx Hypertension Pulmonary Medical History: Reports: Hx Pneumonia Neurological Medical History: Reports: Hx Migraine Renal/ Medical History: Reports: Hx Ectopic , Hx Kidney Stones. Denies: Hx Peritoneal Dialysis Musculoskeltal Medical History: Reports Hx Arthritis, Reports Hx Musculoskeletal Deformity, Reports Hx Musculoskeletal Trauma Psychiatric Medical History: Reports: Hx Anxiety, Hx Attention Deficit Hyperactivity Disorder, Hx Bipolar Disorder, Hx Depression Past Surgical History: Reports: Hx Appendectomy, Hx Genitourinary Surgery - right ureteral stent, Other - Ureteral stent placement - Immunizations Immunizations up to date: No Hx Diphtheria, Pertussis, Tetanus Vaccination: No - unk Physical Exam - Vital signs Vitals: Temp Pulse Resp BP Pulse Ox 98.1 F 99 16 143/72 H 100 07/30/20 15:40 07/30/20 15:40 07/30/20 15:40 07/30/20 15:40 07/30/20 15:40 Course - Vital Signs Vital signs: Temp Pulse Resp BP Pulse Ox 98.1 F 99 16 143/72 H 100 07/30/20 15:40 07/30/20 15:40 07/30/20 15:40 07/30/20 15:40 07/30/20 15:40 Doctor's Discharge - Discharge Referrals: PETE MONTEZ FNP [Primary Care Provider] - Follow up as needed
[2020-07-30 16:16] LABS: ABSOLUTE LYMPHOCYTES (AUTO) 1.6 10^3/uL (0.5-4.7); ABSOLUTE MONOCYTES (AUTO) 0.4 10^3/uL (0.1-1.4); ABSOLUTE NEUT (AUTO) 6.8 10^3/uL (1.7-8.2); BASOPHILS % (AUTO) 0.6 % (0-2); EOSINOPHILS % (AUTO) 0.4 % (0-6); HEMATOCRIT 39.9 % (36.0-47.0); HEMOGLOBIN 13.2 g/dL (12.0-15.5); LYMPHOCYTES % (AUTO) 18.2 % (13-45); MEAN CORPUSCULAR HEMOGLOBIN 32.3 pg (27.0-33.4); MEAN CORPUSCULAR HGB CONC 33.1 g/dL (32.0-36.0); MEAN CORPUSCULAR VOLUME 97 fl (80-97); MONOCYTES % (AUTO) 4.9 % (3-13); PLATELET COUNT 226 10^3/uL (150-450); RED CELL DISTRIBUTION WIDTH 15.8 % (11.5-14.0); SEGMENTED NEUTROPHILS % (AUTO) 75.9 % (42-78); TOTAL CELLS COUNTED % (AUTO) 100 %; WHITE BLOOD COUNT 8.9 10^3/uL (4.0-10.5)
[2020-07-30 16:18] LABS: APPEARANCE,URINE SLIGHTLY-CLOUDY; BILIRUBIN,URINE NEGATIVE (NEGATIVE); COLOR,URINE YELLOW; GLUCOSE, URINE NEGATIVE (NEGATIVE); KETONES,URINE NEGATIVE (NEGATIVE); LEUKOCYTE ESTERASE,URINE NEGATIVE (NEGATIVE); NITRITE,URINE NEGATIVE (NEGATIVE); PROTEIN,URINE 30 mg/dL (NEGATIVE); URINE SPECIFIC GRAVITY 1.021; UROBILINOGEN,URINE NEGATIVE mg/dL (<2.0)
--- NOTE | 2020-07-30 16:59 | RADIOLOGY REPORT (SQ) ---
EXAM DESCRIPTION: CT ABD/PELVIS NO ORAL OR IV IMAGES COMPLETED DATE/TIME: 07/30/2020 4:35 pm REASON FOR STUDY: right flank pain COMPARISON: 10/05/2019 TECHNIQUE: CT scan of the abdomen and pelvis performed without intravenous or oral contrast. Images reviewed with lung, soft tissue, and bone windows. Reconstructed coronal and sagittal MPR images revi ewed. All images stored on PACS. All CT scanners at this facility use dose modulation, iterative reconstruction, and/or weight based d osing when appropriate to reduce radiation dose to as low as reasonably achievable (ALARA). [facility]: Dose Right [facility]: CareDose [facility]: Dose Right [facility]: Teradose 4D [facility]: Smart Pythian RADIATION DOSE: CT Rad equipment meets quality standard of care and radiation dose reduction techniq ues were employed. CTDIvol: 9.4 mGy. DLP: 510 mGy-cm.mGy. LIMITATIONS: None. FINDINGS: LOWER CHEST: No significant findings. No nodules or infiltrates. NON-CONTRASTED LIVER, SPLEEN, ADRENALS: Evaluation limited by lack of IV contrast. No identified sign ificant masses. PANCREAS: No masses. No peripancreatic inflammatory changes. GALLBLADDER: No identified stones by CT criteria. No inflammatory changes to suggest cholecystitis. RIGHT KIDNEY AND URETER: No suspicious masses. Assessment limited by lack of IV contrast. Chronic sc arring in right renal atrophy, stable. No significant calcifications. No hydronephrosis or hydrour eter. LEFT KIDNEY AND URETER: Hypertrophied left kidney. No suspicious masses. Assessment limited by lack of IV contrast. No significant calcifications. No hydronephrosis or hydroureter. AORTA AND RETROPERITONEUM: No aneurysm. No retroperitoneal masses or adenopathy. BOWEL AND PERITONEAL CAVITY: No obvious masses or inflammatory changes. No free fluid. APPENDIX: Surgically absent. PELVIS, BLADDER, AND ABDOMINAL WALL:Decompressed urinary bladder. No pelvic free fluid, adenopathy o r mass. Unchanged scattered pelvic phleboliths. BONES: No acute bony abnormality. Mild lower lumbar facet arthropathy. OTHER: No other significant finding. IMPRESSION: 1. No evidence of nephrolithiasis or obstructive uropathy. No other evidence of acute intra-abdominal/pelvic process. 2. Stable additional incidental findings as above. COMMENT: Quality ID # [id number]: Final reports with documentation of one or more dose reduction techniques (e.g., Automated exposure control, adjustment of the mA and/or kV according to patient size, use of iterative reconstruction technique) TECHNICAL DOCUMENTATION: JOB ID: [id number] [employer]- All Rights Reserved Reading location - IP/workstation name: [email or web address]
[2020-07-30] MEDS ORDERED: NORMAL SALINE 1000 ML 1,000 ML IV ONE (20:24)
[2020-07-30] MEDS ORDERED: ONDANSETRON 4 MG TAB.RAPDIS PO ONE (20:24)
[2020-07-30] MEDS ORDERED: OXYCODONE-ACETAMINOPHEN 5-325 MG TABLET PO ONE (20:24)
--- NOTE | 2020-07-30 20:25 | ER Document Report ---
ED General - General Chief Complaint: Flank Pain Stated Complaint: FLANK PAIN Time Seen by Provider: 07/30/20 15:50 Primary Care Provider: PETE MONTEZ FNP [Primary Care Provider] - Follow up as needed Mode of Arrival: Ambulatory Notes: Patient is a 45 year old female that comes emergency department for chief complaint of right flank pain for the past couple of days. She states that she also had intermittent lower abdominal cramps and she vomited. She states she has a history of kidney stones and pyelonephritis, she states she thinks she might be passing one. She also states that she lifts a lot of boxes at work and she might have strained her back. She states she has had a right ureteral stent in the past but not anymore. She has had an appendectomy, has a history of hypertension, hyperlipidemia, and smoking. TRAVEL OUTSIDE OF THE [place] IN LAST 30 DAYS: No - Related Data Allergies/Adverse Reactions: hydrocodone [From Vicodin] Allergy (Verified 10/05/19 12:15) Past Medical History - General Information source: Patient - Social History Smoking Status: Current Every Day Smoker Chew tobacco use (# tins/day): No Smoking Education Provided: Yes - <3 min Frequency of alcohol use: Occasional Drug Abuse: None Lives with: Family Family History: Reviewed & Not Pertinent, Arthritis, DM, Malignancy - Past Medical History Cardiac Medical History: Reports: Hx Hypercholesterolemia, Hx Hypertension Pulmonary Medical History: Reports: Hx Pneumonia Neurological Medical History: Reports: Hx Migraine Renal/ Medical History: Reports: Hx Ectopic , Hx Kidney Stones. Denies: Hx Peritoneal Dialysis Musculoskeletal Medical History: Reports Hx Arthritis, Reports Hx Musculoskeletal Deformity, Reports Hx Musculoskeletal Trauma Psychiatric Medical History: Reports: Hx Anxiety, Hx Attention Deficit Hyperactivity Disorder, Hx Bipolar Disorder, Hx Depression Past Surgical History: Reports: Hx Appendectomy, Hx Genitourinary Surgery - right ureteral stent, Other - Ureteral stent placement - Immunizations Immunizations up to date: No Hx Diphtheria, Pertussis, Tetanus Vaccination: No - unk Review of Systems - Review of Systems Constitutional: No symptoms reported EENT: No symptoms reported Cardiovascular: No symptoms reported Respiratory: No symptoms reported Gastrointestinal: See HPI Genitourinary: See HPI Female Genitourinary: No symptoms reported Musculoskeletal: See HPI Skin: No symptoms reported Hematologic/Lymphatic: No symptoms reported Neurological/Psychological: No symptoms reported Physical Exam - Vital signs Vitals: Temp Pulse Resp BP Pulse Ox 98.1 F 99 16 143/72 H 100 07/30/20 15:40 07/30/20 15:40 07/30/20 15:40 07/30/20 15:40 07/30/20 15:40 - Notes Notes: GENERAL: Alert, interacts well. No acute distress. HEAD: Normocephalic, atraumatic. EYES: Pupils equal, round, and reactive to light. Extraocular movements intact. ENT: Oral mucosa moist, tongue midline. Oropharynx unremarkable. Airway patent. NECK: Full range of motion. Supple. Trachea midline. No lymphadenopathy. LUNGS: Clear to auscultation bilaterally, no wheezes, rales, or rhonchi. No respiratory distress. Non-tender chest wall. HEART: Regular rate and rhythm. No murmur ABDOMEN: Soft, non-tender. Non-distended. Bowel sounds present in all 4 quadrants. GENITOURINARY: Deferred EXTREMITIES: Moves all 4 extremities spontaneously. No edema, normal radial and dorsalis pedis pulses bilaterally. No cyanosis. BACK: no cervical, thoracic, lumbar midline tenderness. There is bilateral paralumbar tenderness which is reproducible and specific. No signs of trauma. No saddle anesthesia, normal distal neurovascular exam. Moves all extremities in full range of motion. NEUROLOGICAL: Alert and oriented x3. Normal speech. Cranial nerves II through XII grossly intact. Strength 5/5 in all extremities. PSYCH: Normal affect, normal mood. SKIN: Warm, dry, normal turgor. No rashes or lesions noted. Course - Re-evaluation Re-evalutation: Patient's abdomen is benign, she does report flank pain although no severe flank pain is noted on palpation. There does appear to be paralumbar musculature tenderness on my exam. No neurological deficits, no injury. I did review work- up from triage including CBC, chemistry, lipase, urinalysis, CAT scan. These are all unremarkable. Patient denies . Patient has waited for an extended period and is requesting discharge. Patient will be treated for suspected musculoskeletal source of her pain, I discussed follow-up and return precautions in detail, patient states appreciation and agreement. Stable and well-appearing at time of discharge. - Vital Signs Vital signs: Temp Pulse Resp BP Pulse Ox 98.4 F 84 16 128/75 H 98 07/30/20 21:30 07/30/20 21:30 07/30/20 21:30 07/30/20 21:30 07/30/20 21:30 - Laboratory Result Diagrams: 07/30/20 16:00 07/30/20 16:00 Laboratory results interpreted by me: 07/30/20 07/30/20 07/30/20 16:00 16:00 16:00 RDW 15.8 H Glucose 148 H Urine Protein 30 H Discharge - Discharge Clinical Impression: Flank pain Condition: Stable Disposition: HOME, SELF-CARE Additional Instructions: Your work-up shows some dehydration but your laboratory work-up and CAT scan imaging did not show any concerning findings otherwise. No passing stone or stones in the kidneys are seen. This appears to be muscle strain and muscle spasm in your lumbar muscles. I recommend heat to the area, gentle massage, gentle stretches, and rest. Avoid lifting or twisting. Take the anti- inflammatory and muscle relaxers as prescribed, improve your hydration. Symptoms should resolve with time. Follow-up with primary care. Return if you worsen including severe worsening pain, fever, developing numbness, inability to control your bowel or bladder, or any other concerning or worsening symptoms. Prescriptions: Naproxen 500 mg PO BID PRN #20 tablet PRN Reason: Methocarbamol [Robaxin-750] 750 mg PO QID PRN #20 tablet PRN Reason: Forms: Return to Work Referrals: PETE MONTEZ FNP [Primary Care Provider] - Follow up as needed
[2020-07-30 21:01] LABS: ALBUMIN 4.6 g/dL (3.5-5.0); ALKALINE PHOSPHATASE 43 U/L (38-126); ANION GAP 11 (5-19); ASPARTATE AMINO TRANSFERASE 35 U/L (14-36); BILIRUBIN,DIRECT 0.3 mg/dL (0.0-0.4); BILIRUBIN,TOTAL 0.9 mg/dL (0.2-1.3); BLOOD UREA NITROGEN 12 mg/dL (7-20); CALCIUM 9.6 mg/dL (8.4-10.2); CARBON DIOXIDE 23 mmol/L (22-30); CHLORIDE 104 mmol/L (98-107); GLUCOSE 148 mg/dL (75-110); POTASSIUM 4.4 mmol/L (3.6-5.0); TOTAL PROTEIN 7.7 g/dL (6.3-8.2)
[2020-07-30 22:41] VITALS: BP 128/75
== END 2020-07-30 21:30 | disposition home or self-care (01) ==
LOC: ER 15:33
DX: R10.9 Unspecified abdominal pain (principal); F17.200 Nicotine dependence, unspecified, uncomplicated; E78.00 Pure hypercholesterolemia, unspecified; I10 Essential (primary) hypertension; Z87.442 Personal history of urinary calculi
CPT/HCPCS: 99285; 96360; 36415; 87086; 83690; 85025; 80053; 81001; 74176; S0119; J7030